=== PATIENT | male | born 1960 ===

== ENCOUNTER 2017-10-21 16:22 | Observation (INO) ==
[2017-10-21] MEDS ORDERED: ASPIRIN 325 MG TABLET PO STA (17:35)
[2017-10-21] MEDS ORDERED: NITROGLYCERIN 2% OINT 1 INCH/GM PACK TOP STA (17:35)
[2017-10-21] MEDS ORDERED: ONDANSETRON 4 MG/2 ML VIAL IV STA (17:35)
[2017-10-21] MEDS ORDERED: MORPHINE 2 MG/1 ML SYRINGE IV STA (17:35)
[2017-10-21] MEDS ORDERED: FUROSEMIDE 40 MG/4 ML VIAL IV STA (17:35)
[2017-10-21 17:44] LABS: Basophils % 0.5 % (0.0-0.8); Eosinophils # 0.2 10*3/uL (0.0-0.87); Eosinophils % 2.6 % (0.00-10.9); Hematocrit 32.6 VOL% (42.0-52.0); Hemoglobin 11.1 GM/DL (14.0-18.0); Immature Granulocytes Absolute 0.07 #; Lymphocytes # 2.3 10*3/uL (1.4-4.0); Lymphocytes % 31.8 % (21.2-54.2); Mean Corpuscular Hemoglobin 28 PG (27-34); Mean Corpuscular Volume 80.7 FL (87-102); Mean Platelet Volume 12.5 FL (9.6-12.0); Monocytes # 0.5 10*3/uL (0.11-0.8); Monocytes % 6.3 % (1.7-12.7); Neutrophils # 4.3 10*3/uL (1.4-7.4); Neutrophils % 57.8 % (38.7-73.9); Platelet Count 311 T/CUMM (130-400); Red Blood Count 4.04 MC/CUMM (3.8-5.5); Red Cell Distribution Width 13.8 % (9.3-17.3); White Blood Count 7.4 T/CUMM (4-12)
[2017-10-21] MEDS ORDERED: MORPHINE 2 MG/1 ML SYRINGE ONE (17:49)
[2017-10-21] MEDS ORDERED: FUROSEMIDE 40 MG/4 ML VIAL ONE (17:49)
[2017-10-21] MEDS ORDERED: NITROGLYCERIN 2% OINT 1 INCH/GM PACK TOP ONE (17:49)
[2017-10-21] MEDS ORDERED: ONDANSETRON 4 MG/2 ML VIAL ONE (17:49)
[2017-10-21] MEDS ORDERED: ASPIRIN 325 MG TABLET ONE (17:49)
[2017-10-21 17:59] LABS: Albumin 1.5 G/DL (3.4-5.0); Bilirubin,Total 0.5 MG/DL (0.2-1.0); Calcium 7.6 MG/DL (8.5-10.1); Osmolality,Calculated 295.8 MOS/KG (273-304); Potassium 3.5 MMOL/L (3.5-5.1); Total Protein 5.1 G/DL (6.4-8.3)
[2017-10-21 18:09] LABS: Apearance,Urine CLEAR (Clear); Bilirubin,Urine Negative (Negative); Blood, Urine Negative (Negative); Glucose,Urine (UA) >=500 mg/dL (Negative); Ketones,Urine Negative (Negative); Mucus,Urine Occasional /LPF (Occasional); Nitrite,Urine Negative (Negative); Protein,Urine >=500 MG/DL; RBC,Urine 1 /HPF (0-4); Urine Color Yellow (Yellow); Urine Specific Gravity 1.021 (1.001-1.035); Urine Urobilinogen < 2.0 EU/DL (0.2-1.0); WBC,Urine 1 /HPF (0-6)
[2017-10-21 18:11] LABS: Barbiturates Screen,Urine Negative (Negative); Benzodiazepines Screen,Urine Negative (Negative); Cannabinoid Screen,Urine Negative (Negative); Opiate Screen,Urine Negative (Negative); Phencyclidine Screen,Urine Negative (Negative)
[2017-10-21 18:16] LABS: INR 0.9; PT Patient Result 9.4 SECS
[2017-10-21] MEDS ORDERED: INSULIN REGULAR 100 UNIT/ML SUBCUT STA (18:40)
[2017-10-21] MEDS ORDERED: POLYVINYL ALCOHOL 1.4% OPH SOLN 15 ML BOTTLE BOTH EYES PRN (18:50)
[2017-10-21] MEDS ORDERED: INSULIN REGULAR 100 UNIT/ML ONE (18:52)
[2017-10-21] MEDS ORDERED: ACETAMINOPHEN 325 MG TABLET PO PRN (19:11)
[2017-10-21] MEDS ORDERED: DEXTROSE 50% 25 GM/50 ML VIAL IV PRN (19:11)
[2017-10-21] MEDS ORDERED: GLUCAGON 1 MG VIAL IM PRN (19:11)
[2017-10-21] MEDS ORDERED: ONDANSETRON 4 MG/2 ML VIAL IV PRN (19:11)
[2017-10-21] MEDS ORDERED: DORZOLAMIDE/TIMOLOL OPH SOLN 10 ML BOTTLE BOTH EYES SCH (21:00)
[2017-10-21] MEDS: LISINOPRIL 20 MG TABLET PO SCH (22:44)
[2017-10-21] MEDS: ATORVASTATIN 80 MG TABLET PO SCH (22:44)
[2017-10-21] MEDS: METOPROLOL TARTRATE 25 MG TABLET PO SCH (22:45)
[2017-10-21] MEDS: GABAPENTIN 100 MG CAPSULE PO SCH (22:45)
[2017-10-21] MEDS: ENOXAPARIN 40 MG/0.4 ML SYRINGE SUBCUT SCH (22:46)
[2017-10-21] MEDS: INSULIN GLARGINE 100 UNIT/ML SUBCUT SCH (22:47)
[2017-10-21] MEDS: INSULIN REGULAR 100 UNIT/ML SUBCUT SCH (22:48)
[2017-10-21] MEDS: BRIMONIDINE 0.2% OPH SOLN 5 ML BOTTLE LEFT EYE SCH (22:55)
[2017-10-22] MEDS: NITROGLYCERIN 2% OINT 1 INCH/GM PACK TOP SCH ×4 (01:16→17:50)
[2017-10-22 05:43] LABS: Basophils # 0.1 10*3/uL (0.0-0.2); Basophils % 0.8 % (0.0-0.8); Eosinophils # 0.3 10*3/uL (0.0-0.87); Eosinophils % 3.9 % (0.00-10.9); Hematocrit 30.3 VOL% (42.0-52.0); Hemoglobin 9.8 GM/DL (14.0-18.0); Immature Granulocytes % 1.3 %; Immature Granulocytes Absolute 0.08 #; Lymphocytes # 2.9 10*3/uL (1.4-4.0); Lymphocytes % 45.5 % (21.2-54.2); Mean Corpuscular HGB Conc 32.3 GM/DL (32-36); Mean Corpuscular Hemoglobin 27 PG (27-34); Mean Corpuscular Volume 83.7 FL (87-102); Mean Platelet Volume 12.1 FL (9.6-12.0); Monocytes # 0.4 10*3/uL (0.11-0.8); Monocytes % 6.9 % (1.7-12.7); Neutrophils # 2.7 10*3/uL (1.4-7.4); Neutrophils % 41.6 % (38.7-73.9); Platelet Count 275 T/CUMM (130-400); Red Blood Count 3.62 MC/CUMM (3.8-5.5); Red Cell Distribution Width 13.8 % (9.3-17.3); White Blood Count 6.4 T/CUMM (4-12)
[2017-10-22 06:08] LABS: Calcium 7.3 MG/DL (8.5-10.1); Osmolality,Calculated 293.4 MOS/KG (273-304); Potassium 3.1 MMOL/L (3.5-5.1); Risk Ratio 5.11; Thyroid Stimulating Hormone 1.52 uIU/ml (0.358-3.74); VLDL CHOLESTEROL 24.8 MG/DL
[2017-10-22] MEDS: GABAPENTIN 100 MG CAPSULE PO SCH ×3 (08:25→22:52)
[2017-10-22] MEDS: POTASSIUM CHLORIDE 20 MEQ TABLET PO PRN ×4 (08:25→15:42)
[2017-10-22] MEDS: CLOPIDOGREL 75 MG TABLET PO SCH (08:26)
[2017-10-22] MEDS: METOPROLOL TARTRATE 25 MG TABLET PO SCH ×2 (08:26→22:53)
[2017-10-22] MEDS: ASPIRIN EC 81 MG TABLET PO SCH (08:26)
[2017-10-22] MEDS: PANTOPRAZOLE 40 MG TABLET PO SCH (08:26)
[2017-10-22] MEDS: LISINOPRIL 20 MG TABLET PO SCH ×2 (08:26→22:54)
[2017-10-22] MEDS: INSULIN REGULAR 100 UNIT/ML SUBCUT SCH ×4 (08:27→22:50)
[2017-10-22] MEDS: INSULIN LISPRO 100 UNIT/ML SUBCUT SCH (08:28)
[2017-10-22] MEDS: BRIMONIDINE 0.2% OPH SOLN 5 ML BOTTLE LEFT EYE SCH ×3 (12:19→22:54)
[2017-10-22] MEDS: SODIUM CHLORIDE 0.45% 1,000 ML IV SCH (12:20)
[2017-10-22] MEDS: INSULIN GLARGINE 100 UNIT/ML SUBCUT SCH (22:51)
[2017-10-22] MEDS: ENOXAPARIN 40 MG/0.4 ML SYRINGE SUBCUT SCH (22:52)
[2017-10-22] MEDS: ATORVASTATIN 80 MG TABLET PO SCH (22:52)
[2017-10-23] MEDS: NITROGLYCERIN 2% OINT 1 INCH/GM PACK TOP SCH ×3 (00:43→12:02)
[2017-10-23] MEDS: SODIUM CHLORIDE 0.45% 1,000 ML IV SCH ×2 (00:44→02:20)
[2017-10-23 06:15] LABS: Basophils # 0.1 10*3/uL (0.0-0.2); Basophils % 0.8 % (0.0-0.8); Eosinophils # 0.3 10*3/uL (0.0-0.87); Eosinophils % 3.4 % (0.00-10.9); Hematocrit 33.4 VOL% (42.0-52.0); Hemoglobin 10.6 GM/DL (14.0-18.0); Immature Granulocytes % 1.7 %; Immature Granulocytes Absolute 0.13 #; Lymphocytes # 3.1 10*3/uL (1.4-4.0); Lymphocytes % 39.7 % (21.2-54.2); Mean Corpuscular HGB Conc 31.7 GM/DL (32-36); Mean Corpuscular Hemoglobin 27 PG (27-34); Mean Platelet Volume 12.3 FL (9.6-12.0); Monocytes # 0.6 10*3/uL (0.11-0.8); Monocytes % 7.1 % (1.7-12.7); Neutrophils # 3.7 10*3/uL (1.4-7.4); Neutrophils % 47.3 % (38.7-73.9); Platelet Count 297 T/CUMM (130-400); Red Blood Count 3.93 MC/CUMM (3.8-5.5); Red Cell Distribution Width 13.9 % (9.3-17.3); White Blood Count 7.8 T/CUMM (4-12)
[2017-10-23 06:49] LABS: Calcium 7.6 MG/DL (8.5-10.1); Osmolality,Calculated 293.3 MOS/KG (273-304); Potassium 4.5 MMOL/L (3.5-5.1)
[2017-10-23 07:49] VITALS: BP 161/82
[2017-10-23] MEDS: INSULIN REGULAR 100 UNIT/ML SUBCUT SCH ×2 (09:30→12:02)
[2017-10-23] MEDS: METOPROLOL TARTRATE 25 MG TABLET PO SCH (09:30)
[2017-10-23] MEDS: PANTOPRAZOLE 40 MG TABLET PO SCH (09:30)
[2017-10-23] MEDS: BRIMONIDINE 0.2% OPH SOLN 5 ML BOTTLE LEFT EYE SCH (09:30)
[2017-10-23] MEDS: CLOPIDOGREL 75 MG TABLET PO SCH (09:30)
[2017-10-23] MEDS: ASPIRIN EC 81 MG TABLET PO SCH (09:30)
[2017-10-23] MEDS: LISINOPRIL 20 MG TABLET PO SCH (09:31)
[2017-10-23] MEDS: GABAPENTIN 100 MG CAPSULE PO SCH (09:31)
[2017-10-23] MEDS: INSULIN LISPRO 100 UNIT/ML SUBCUT SCH (09:35)
[2017-10-23] MEDS ORDERED: amLODIPine 10 MG TABLET PO SCH (11:00)
[2017-10-23] MEDS ORDERED: INSULIN GLARGINE 100 UNIT/ML SUBCUT SCH (21:00)
[2017-10-24] MEDS ORDERED: LISINOPRIL 20 MG TABLET PO SCH (09:00)
== END 2017-10-23 12:33 | disposition home health service (06) ==
LOC: EDUNIT# → EDBD → N.ED 16:22 → N.EDINP 16:22 → N.2E 19:12 → N.SDSINP 19:20 → N.2E 20:07
PROVIDERS: ADMIT Hospitalist; ATTEND Hospitalist

== ENCOUNTER 2017-11-11 11:50 | Inpatient (IN) ==
[2017-11-11 13:17] LABS: Basophils # 0.1 10*3/uL (0.0-0.2); Basophils % 0.4 % (0.0-0.8); Eosinophils # 0.1 10*3/uL (0.0-0.87); Eosinophils % 0.3 % (0.00-10.9); Hematocrit 35.4 VOL% (42.0-52.0); Hemoglobin 11.8 GM/DL (14.0-18.0); Immature Granulocytes % 1.3 %; Immature Granulocytes Absolute 0.21 #; Lymphocytes # 1.6 10*3/uL (1.4-4.0); Lymphocytes % 9.5 % (21.2-54.2); Mean Corpuscular HGB Conc 33.3 GM/DL (32-36); Mean Corpuscular Hemoglobin 27 PG (27-34); Mean Corpuscular Volume 81.2 FL (87-102); Mean Platelet Volume 11.8 FL (9.6-12.0); Monocytes % 5.8 % (1.7-12.7); Neutrophils # 13.8 10*3/uL (1.4-7.4); Neutrophils % 82.7 % (38.7-73.9); Platelet Count 300 T/CUMM (130-400); Red Blood Count 4.36 MC/CUMM (3.8-5.5); Red Cell Distribution Width 13.3 % (9.3-17.3); White Blood Count 16.6 T/CUMM (4-12)
[2017-11-11 13:41] LABS: Albumin 1.5 G/DL (3.4-5.0); Bilirubin,Total 0.5 MG/DL (0.2-1.0); Calcium 7.9 MG/DL (8.5-10.1); Osmolality,Calculated 293.4 MOS/KG (273-304); Potassium 3.5 MMOL/L (3.5-5.1); Total Protein 6.4 G/DL (6.4-8.3)
[2017-11-11] MEDS ORDERED: SODIUM CHLORIDE 0.9% 1,000 ML IV STA (14:30)
[2017-11-11] MEDS ORDERED: INSULIN REGULAR 100 UNIT/ML IV STA (14:30)
[2017-11-11] MEDS ORDERED: INSULIN REGULAR 100 UNIT/ML ONE (14:37)
[2017-11-11 15:03] LABS: Apearance,Urine CLEAR (Clear); Bilirubin,Urine Negative (Negative); Blood, Urine Small mg/dL (Negative); Glucose,Urine (UA) >=500 mg/dL (Negative); Ketones,Urine Negative (Negative); Mucus,Urine Occasional /LPF (Occasional); Nitrite,Urine Negative (Negative); Protein,Urine >=500 MG/DL; RBC,Urine 2 /HPF (0-4); Squamous Epithelial Cell,Urine Occasional /HPF (0-10); Urine Color Yellow (Yellow); Urine Specific Gravity 1.025 (1.001-1.035); Urine Urobilinogen < 2.0 EU/DL (0.2-1.0); WBC,Urine 2 /HPF (0-6)
[2017-11-11] MEDS ORDERED: ONDANSETRON 4 MG/2 ML VIAL IV PRN (15:09)
[2017-11-11] MEDS ORDERED: ACETAMINOPHEN 325 MG TABLET PO PRN (15:09)
[2017-11-11] MEDS ORDERED: GLUCAGON 1 MG VIAL IM PRN (15:16)
[2017-11-11] MEDS ORDERED: DEXTROSE 50% 25 GM/50 ML VIAL IV PRN (15:16)
[2017-11-11] MEDS ORDERED: PIPERACILLIN/TAZOBACTAM 3,375 MG in SODIUM CHLORIDE 0.9% 100 ML IV STA (15:17)
[2017-11-11] MEDS: SODIUM CHLORIDE 0.9% 1,000 ML IV SCH (15:51)
[2017-11-11] MEDS ORDERED: LABETALOL 20 MG/4 ML SYRINGE IV ONE (16:28)
[2017-11-11] MEDS: amLODIPine 10 MG TABLET PO SCH (17:22)
[2017-11-11] MEDS: PIPERACILLIN/TAZOBACTAM 3,375 MG in SODIUM CHLORIDE 0.9% 100 ML IV SCH (17:55)
[2017-11-11] MEDS: INSULIN LISPRO 100 UNIT/ML SUBCUT SCH ×2 (17:57→20:51)
[2017-11-11] MEDS: ENOXAPARIN 40 MG/0.4 ML SYRINGE SUBCUT SCH (17:57)
[2017-11-11] MEDS: INSULIN GLARGINE 100 UNIT/ML SUBCUT SCH (20:50)
[2017-11-11] MEDS: VANCOMYCIN INJ 1,250 MG in SODIUM CHLORIDE 0.9% 250 ML IV SCH ×2 (20:51→22:16)
[2017-11-12] MEDS: PIPERACILLIN/TAZOBACTAM 3,375 MG in SODIUM CHLORIDE 0.9% 100 ML IV SCH ×3 (01:37→21:56)
[2017-11-12 05:46] LABS: Basophils % 0.3 % (0.0-0.8); Eosinophils # 0.2 10*3/uL (0.0-0.87); Eosinophils % 1.4 % (0.00-10.9); Hematocrit 30.7 VOL% (42.0-52.0); Hemoglobin 9.9 GM/DL (14.0-18.0); Immature Granulocytes Absolute 0.13 #; Lymphocytes # 2.5 10*3/uL (1.4-4.0); Lymphocytes % 19.3 % (21.2-54.2); Mean Corpuscular HGB Conc 32.2 GM/DL (32-36); Mean Corpuscular Hemoglobin 27 PG (27-34); Mean Corpuscular Volume 82.3 FL (87-102); Mean Platelet Volume 11.6 FL (9.6-12.0); Monocytes % 7.4 % (1.7-12.7); Neutrophils # 9.2 10*3/uL (1.4-7.4); Neutrophils % 70.6 % (38.7-73.9); Platelet Count 278 T/CUMM (130-400); Red Blood Count 3.73 MC/CUMM (3.8-5.5); Red Cell Distribution Width 13.5 % (9.3-17.3)
[2017-11-12] MEDS: SODIUM CHLORIDE 0.9% 1,000 ML IV SCH (06:13)
[2017-11-12 06:14] LABS: Calcium 7.2 MG/DL (8.5-10.1); Osmolality,Calculated 293.4 MOS/KG (273-304); Potassium 3.1 MMOL/L (3.5-5.1)
[2017-11-12] MEDS: INSULIN LISPRO 100 UNIT/ML SUBCUT SCH ×4 (08:04→21:44)
[2017-11-12] MEDS: PANTOPRAZOLE 40 MG TABLET PO SCH (08:07)
[2017-11-12] MEDS: amLODIPine 10 MG TABLET PO SCH (08:07)
[2017-11-12] MEDS ORDERED: DORZOLAMIDE/TIMOLOL OPH SOLN 10 ML BOTTLE BOTH EYES SCH (11:30)
[2017-11-12] MEDS ORDERED: BUPIVACAINE 0.25% 50 ML VIAL ONE (12:03)
[2017-11-12] MEDS: ASPIRIN EC 81 MG TABLET PO SCH (12:05)
[2017-11-12] MEDS ORDERED: fentaNYL 100 MCG/2 ML VIAL ONE (13:15)
[2017-11-12] MEDS ORDERED: PROPOFOL 200 MG/20 ML VIAL IV ONE (13:15)
[2017-11-12] MEDS ORDERED: MIDAZOLAM 2 MG/2 ML VIAL ONE (13:15)
[2017-11-12] MEDS ORDERED: LABETALOL 100 MG/20 ML VIAL IV ONE (13:15)
[2017-11-12] MEDS: POTASSIUM CHLORIDE 20 MEQ TABLET PO PRN ×2 (14:54→16:25)
[2017-11-12] MEDS: GABAPENTIN 100 MG CAPSULE PO SCH ×2 (16:25→21:44)
[2017-11-12] MEDS: ENOXAPARIN 40 MG/0.4 ML SYRINGE SUBCUT SCH (18:00)
[2017-11-12] MEDS: BRIMONIDINE 0.2% OPH SOLN 5 ML BOTTLE LEFT EYE SCH ×2 (18:02→21:50)
[2017-11-12] MEDS: METOPROLOL TARTRATE 25 MG TABLET PO SCH ×2 (19:44→21:42)
[2017-11-12] MEDS: LISINOPRIL 20 MG TABLET PO SCH (19:45)
[2017-11-12] MEDS: ATORVASTATIN 80 MG TABLET PO SCH (21:42)
[2017-11-12] MEDS: INSULIN GLARGINE 100 UNIT/ML SUBCUT SCH (21:48)
[2017-11-12] MEDS: VANCOMYCIN INJ 1,250 MG in SODIUM CHLORIDE 0.9% 250 ML IV SCH (23:00)
[2017-11-13] MEDS: PIPERACILLIN/TAZOBACTAM 3,375 MG in SODIUM CHLORIDE 0.9% 100 ML IV SCH ×3 (01:31→16:57)
[2017-11-13] MEDS: SODIUM CHLORIDE 0.9% 1,000 ML IV SCH ×5 (06:10→22:39)
[2017-11-13] MEDS: INSULIN LISPRO 100 UNIT/ML SUBCUT SCH ×4 (08:41→21:01)
[2017-11-13 08:42] LABS: Basophils # 0.1 10*3/uL (0.0-0.2); Basophils % 0.4 % (0.0-0.8); Eosinophils # 0.3 10*3/uL (0.0-0.87); Eosinophils % 2.5 % (0.00-10.9); Hematocrit 32.4 VOL% (42.0-52.0); Hemoglobin 10.5 GM/DL (14.0-18.0); Immature Granulocytes % 1.4 %; Immature Granulocytes Absolute 0.17 #; Lymphocytes # 2.9 10*3/uL (1.4-4.0); Lymphocytes % 24.3 % (21.2-54.2); Mean Corpuscular HGB Conc 32.4 GM/DL (32-36); Mean Corpuscular Hemoglobin 27 PG (27-34); Mean Corpuscular Volume 84.4 FL (87-102); Mean Platelet Volume 11.8 FL (9.6-12.0); Monocytes # 0.9 10*3/uL (0.11-0.8); Monocytes % 7.6 % (1.7-12.7); Neutrophils # 7.5 10*3/uL (1.4-7.4); Neutrophils % 63.8 % (38.7-73.9); Platelet Count 330 T/CUMM (130-400); Red Blood Count 3.84 MC/CUMM (3.8-5.5); Red Cell Distribution Width 13.9 % (9.3-17.3); White Blood Count 11.8 T/CUMM (4-12)
[2017-11-13] MEDS: amLODIPine 10 MG TABLET PO SCH (08:53)
[2017-11-13] MEDS: GABAPENTIN 100 MG CAPSULE PO SCH ×3 (08:53→21:03)
[2017-11-13] MEDS: CLOPIDOGREL 75 MG TABLET PO SCH (08:53)
[2017-11-13] MEDS: METOPROLOL TARTRATE 25 MG TABLET PO SCH ×2 (08:53→21:03)
[2017-11-13] MEDS: ASPIRIN EC 81 MG TABLET PO SCH (08:53)
[2017-11-13] MEDS: PANTOPRAZOLE 40 MG TABLET PO SCH (08:53)
[2017-11-13] MEDS: LISINOPRIL 20 MG TABLET PO SCH (08:54)
[2017-11-13 08:55] LABS: Calcium 7.2 MG/DL (8.5-10.1); Osmolality,Calculated 285.3 MOS/KG (273-304); Potassium 4.3 MMOL/L (3.5-5.1)
[2017-11-13] MEDS: BRIMONIDINE 0.2% OPH SOLN 5 ML BOTTLE LEFT EYE SCH ×3 (13:03→22:37)
[2017-11-13] MEDS: POLYVINYL ALCOHOL 1.4% OPH SOLN 15 ML BOTTLE BOTH EYES PRN (15:45)
[2017-11-13] MEDS: ENOXAPARIN 40 MG/0.4 ML SYRINGE SUBCUT SCH (16:56)
[2017-11-13] MEDS: INSULIN GLARGINE 100 UNIT/ML SUBCUT SCH (21:02)
[2017-11-13] MEDS: ATORVASTATIN 80 MG TABLET PO SCH (21:03)
[2017-11-13] MEDS: VANCOMYCIN INJ 1,250 MG in SODIUM CHLORIDE 0.9% 250 ML IV SCH (22:42)
[2017-11-14] MEDS: PIPERACILLIN/TAZOBACTAM 3,375 MG in SODIUM CHLORIDE 0.9% 100 ML IV SCH ×3 (02:09→16:52)
[2017-11-14 06:38] LABS: Basophils # 0.1 10*3/uL (0.0-0.2); Basophils % 0.6 % (0.0-0.8); Eosinophils # 0.3 10*3/uL (0.0-0.87); Eosinophils % 3.5 % (0.00-10.9); Hematocrit 29.5 VOL% (42.0-52.0); Hemoglobin 9.5 GM/DL (14.0-18.0); Immature Granulocytes % 1.8 %; Immature Granulocytes Absolute 0.15 #; Lymphocytes # 2.5 10*3/uL (1.4-4.0); Lymphocytes % 30.4 % (21.2-54.2); Mean Corpuscular HGB Conc 32.2 GM/DL (32-36); Mean Corpuscular Hemoglobin 27 PG (27-34); Mean Platelet Volume 11.6 FL (9.6-12.0); Monocytes # 0.6 10*3/uL (0.11-0.8); Neutrophils # 4.7 10*3/uL (1.4-7.4); Neutrophils % 56.7 % (38.7-73.9); Platelet Count 320 T/CUMM (130-400); Red Blood Count 3.51 MC/CUMM (3.8-5.5); Red Cell Distribution Width 13.8 % (9.3-17.3); White Blood Count 8.3 T/CUMM (4-12)
[2017-11-14 07:07] LABS: Calcium 7.4 MG/DL (8.5-10.1); Osmolality,Calculated 284.4 MOS/KG (273-304); Potassium 3.9 MMOL/L (3.5-5.1)
[2017-11-14] MEDS: INSULIN LISPRO 100 UNIT/ML SUBCUT SCH ×4 (09:08→20:36)
[2017-11-14] MEDS: BRIMONIDINE 0.2% OPH SOLN 5 ML BOTTLE LEFT EYE SCH ×3 (09:09→20:38)
[2017-11-14] MEDS: CLOPIDOGREL 75 MG TABLET PO SCH (09:09)
[2017-11-14] MEDS: ASPIRIN EC 81 MG TABLET PO SCH (09:09)
[2017-11-14] MEDS: METOPROLOL TARTRATE 25 MG TABLET PO SCH ×2 (09:09→20:34)
[2017-11-14] MEDS: amLODIPine 10 MG TABLET PO SCH (09:09)
[2017-11-14] MEDS: SODIUM CHLORIDE 0.9% 1,000 ML IV SCH ×2 (09:09→15:56)
[2017-11-14] MEDS: LISINOPRIL 20 MG TABLET PO SCH (09:09)
[2017-11-14] MEDS: PANTOPRAZOLE 40 MG TABLET PO SCH (09:09)
[2017-11-14] MEDS: GABAPENTIN 100 MG CAPSULE PO SCH ×3 (09:09→20:34)
[2017-11-14] MEDS: ENOXAPARIN 40 MG/0.4 ML SYRINGE SUBCUT SCH (14:52)
[2017-11-14] MEDS: LABETALOL 20 MG/4 ML SYRINGE IV PRN (16:53)
[2017-11-14] MEDS: INSULIN GLARGINE 100 UNIT/ML SUBCUT SCH (20:35)
[2017-11-15] MEDS: PIPERACILLIN/TAZOBACTAM 3,375 MG in SODIUM CHLORIDE 0.9% 100 ML IV SCH ×2 (01:52→08:19)
[2017-11-15] MEDS: SODIUM CHLORIDE 0.9% 1,000 ML IV SCH ×3 (02:03→11:51)
[2017-11-15 06:31] LABS: Basophils % 0.5 % (0.0-0.8); Eosinophils # 0.3 10*3/uL (0.0-0.87); Eosinophils % 3.9 % (0.00-10.9); Hematocrit 28.9 VOL% (42.0-52.0); Hemoglobin 9.5 GM/DL (14.0-18.0); Immature Granulocytes % 2.1 %; Immature Granulocytes Absolute 0.18 #; Lymphocytes # 2.1 10*3/uL (1.4-4.0); Lymphocytes % 25.2 % (21.2-54.2); Mean Corpuscular HGB Conc 32.9 GM/DL (32-36); Mean Corpuscular Hemoglobin 27 PG (27-34); Mean Corpuscular Volume 82.1 FL (87-102); Mean Platelet Volume 10.9 FL (9.6-12.0); Monocytes # 0.6 10*3/uL (0.11-0.8); Monocytes % 7.3 % (1.7-12.7); Neutrophils # 5.2 10*3/uL (1.4-7.4); Platelet Count 330 T/CUMM (130-400); Red Blood Count 3.52 MC/CUMM (3.8-5.5); Red Cell Distribution Width 13.7 % (9.3-17.3); White Blood Count 8.5 T/CUMM (4-12)
[2017-11-15 06:55] LABS: Calcium 7.2 MG/DL (8.5-10.1); Potassium 3.7 MMOL/L (3.5-5.1)
[2017-11-15] MEDS: INSULIN LISPRO 100 UNIT/ML SUBCUT SCH ×4 (08:17→21:31)
[2017-11-15] MEDS: METOPROLOL TARTRATE 25 MG TABLET PO SCH ×2 (08:19→21:31)
[2017-11-15] MEDS: PANTOPRAZOLE 40 MG TABLET PO SCH (08:19)
[2017-11-15] MEDS: ASPIRIN EC 81 MG TABLET PO SCH (08:19)
[2017-11-15] MEDS: amLODIPine 10 MG TABLET PO SCH (08:19)
[2017-11-15] MEDS: GABAPENTIN 100 MG CAPSULE PO SCH ×3 (08:19→21:30)
[2017-11-15] MEDS: CLOPIDOGREL 75 MG TABLET PO SCH (08:19)
[2017-11-15] MEDS: BRIMONIDINE 0.2% OPH SOLN 5 ML BOTTLE LEFT EYE SCH ×3 (08:25→21:32)
[2017-11-15] MEDS: cefTRIAXone 2,000 MG in SODIUM CHLORIDE 0.9% 100 ML IV SCH (12:56)
[2017-11-15] MEDS ORDERED: diphenhydrAMINE CAP 25 MG CAPSULE PO PRN (13:51)
[2017-11-15] MEDS ORDERED: diphenhydrAMINE CAP 25 MG CAPSULE ONE (14:01)
[2017-11-15] MEDS: ENOXAPARIN 40 MG/0.4 ML SYRINGE SUBCUT SCH (15:47)
[2017-11-15] MEDS: INSULIN GLARGINE 100 UNIT/ML SUBCUT SCH (21:31)
[2017-11-16] MEDS: SODIUM CHLORIDE 0.9% 1,000 ML IV SCH ×2 (03:17→12:33)
[2017-11-16] MEDS: INSULIN LISPRO 100 UNIT/ML SUBCUT SCH ×4 (08:28→21:12)
[2017-11-16] MEDS: GABAPENTIN 100 MG CAPSULE PO SCH ×3 (08:29→21:12)
[2017-11-16] MEDS: METOPROLOL TARTRATE 25 MG TABLET PO SCH ×2 (08:29→21:13)
[2017-11-16] MEDS: PANTOPRAZOLE 40 MG TABLET PO SCH (08:29)
[2017-11-16] MEDS: amLODIPine 10 MG TABLET PO SCH (08:29)
[2017-11-16] MEDS: BRIMONIDINE 0.2% OPH SOLN 5 ML BOTTLE LEFT EYE SCH ×3 (08:29→21:13)
[2017-11-16] MEDS: LABETALOL 20 MG/4 ML SYRINGE IV PRN ×2 (08:29→16:35)
[2017-11-16] MEDS: ASPIRIN EC 81 MG TABLET PO SCH (08:29)
[2017-11-16] MEDS: CLOPIDOGREL 75 MG TABLET PO SCH (08:29)
[2017-11-16] MEDS: cefTRIAXone 2,000 MG in SODIUM CHLORIDE 0.9% 100 ML IV SCH (12:41)
[2017-11-16] MEDS ORDERED: FUROSEMIDE 40 MG/4 ML VIAL IV ONE (13:33)
[2017-11-16] MEDS: ENOXAPARIN 40 MG/0.4 ML SYRINGE SUBCUT SCH (14:32)
[2017-11-16] MEDS: INSULIN GLARGINE 100 UNIT/ML SUBCUT SCH (21:12)
[2017-11-17 06:44] LABS: Calcium 7.6 MG/DL (8.5-10.1); Potassium 4.1 MMOL/L (3.5-5.1)
[2017-11-17] MEDS: INSULIN LISPRO 100 UNIT/ML SUBCUT SCH ×4 (08:20→21:33)
[2017-11-17] MEDS: GABAPENTIN 100 MG CAPSULE PO SCH ×3 (09:41→21:34)
[2017-11-17] MEDS: ASPIRIN EC 81 MG TABLET PO SCH (09:41)
[2017-11-17] MEDS: CLOPIDOGREL 75 MG TABLET PO SCH (09:41)
[2017-11-17] MEDS: METOPROLOL TARTRATE 25 MG TABLET PO SCH ×2 (09:41→21:34)
[2017-11-17] MEDS: BRIMONIDINE 0.2% OPH SOLN 5 ML BOTTLE LEFT EYE SCH ×3 (09:41→21:34)
[2017-11-17] MEDS: amLODIPine 10 MG TABLET PO SCH (09:41)
[2017-11-17] MEDS: PANTOPRAZOLE 40 MG TABLET PO SCH (09:41)
[2017-11-17] MEDS: cefTRIAXone 2,000 MG in SODIUM CHLORIDE 0.9% 100 ML IV SCH (12:11)
[2017-11-17] MEDS: ENOXAPARIN 40 MG/0.4 ML SYRINGE SUBCUT SCH (15:34)
[2017-11-17] MEDS: FUROSEMIDE 40 MG/4 ML VIAL IV SCH (16:42)
[2017-11-17] MEDS: INSULIN GLARGINE 100 UNIT/ML SUBCUT SCH (21:34)
[2017-11-18 05:57] LABS: Basophils # 0.1 10*3/uL (0.0-0.2); Basophils % 0.6 % (0.0-0.8); Eosinophils # 0.4 10*3/uL (0.0-0.87); Hematocrit 28.6 VOL% (42.0-52.0); Hemoglobin 9.2 GM/DL (14.0-18.0); Immature Granulocytes % 4.5 %; Immature Granulocytes Absolute 0.44 #; Lymphocytes # 3.1 10*3/uL (1.4-4.0); Lymphocytes % 31.5 % (21.2-54.2); Mean Corpuscular HGB Conc 32.2 GM/DL (32-36); Mean Corpuscular Hemoglobin 27 PG (27-34); Mean Corpuscular Volume 83.4 FL (87-102); Mean Platelet Volume 10.4 FL (9.6-12.0); Monocytes # 0.7 10*3/uL (0.11-0.8); Monocytes % 7.5 % (1.7-12.7); Neutrophils # 5.1 10*3/uL (1.4-7.4); Neutrophils % 51.9 % (38.7-73.9); Platelet Count 394 T/CUMM (130-400); Red Blood Count 3.43 MC/CUMM (3.8-5.5); White Blood Count 9.9 T/CUMM (4-12)
[2017-11-18 06:20] LABS: Calcium 7.5 MG/DL (8.5-10.1); Potassium 3.7 MMOL/L (3.5-5.1)
[2017-11-18] MEDS: INSULIN LISPRO 100 UNIT/ML SUBCUT SCH ×4 (08:56→21:20)
[2017-11-18] MEDS: FUROSEMIDE 40 MG/4 ML VIAL IV SCH ×2 (09:19→15:46)
[2017-11-18] MEDS: BRIMONIDINE 0.2% OPH SOLN 5 ML BOTTLE LEFT EYE SCH ×3 (09:20→21:23)
[2017-11-18] MEDS: amLODIPine 10 MG TABLET PO SCH (09:20)
[2017-11-18] MEDS: METOPROLOL TARTRATE 25 MG TABLET PO SCH ×2 (09:20→21:18)
[2017-11-18] MEDS: GABAPENTIN 100 MG CAPSULE PO SCH ×3 (09:20→21:18)
[2017-11-18] MEDS: ASPIRIN EC 81 MG TABLET PO SCH (09:20)
[2017-11-18] MEDS: CLOPIDOGREL 75 MG TABLET PO SCH (09:20)
[2017-11-18] MEDS: cefTRIAXone 2,000 MG in SODIUM CHLORIDE 0.9% 100 ML IV SCH (12:16)
[2017-11-18] MEDS: ENOXAPARIN 40 MG/0.4 ML SYRINGE SUBCUT SCH (14:33)
[2017-11-18] MEDS: INSULIN GLARGINE 100 UNIT/ML SUBCUT SCH (21:19)
[2017-11-19] MEDS: LABETALOL 20 MG/4 ML SYRINGE IV PRN (05:14)
[2017-11-19] MEDS: FUROSEMIDE 40 MG/4 ML VIAL IV SCH (08:35)
[2017-11-19] MEDS: POLYVINYL ALCOHOL 1.4% OPH SOLN 15 ML BOTTLE BOTH EYES PRN (08:36)
[2017-11-19] MEDS: METOPROLOL TARTRATE 25 MG TABLET PO SCH (08:36)
[2017-11-19] MEDS: INSULIN LISPRO 100 UNIT/ML SUBCUT SCH ×2 (08:36→12:27)
[2017-11-19] MEDS: CLOPIDOGREL 75 MG TABLET PO SCH (08:36)
[2017-11-19] MEDS: ASPIRIN EC 81 MG TABLET PO SCH (08:36)
[2017-11-19] MEDS: amLODIPine 10 MG TABLET PO SCH (08:36)
[2017-11-19] MEDS: BRIMONIDINE 0.2% OPH SOLN 5 ML BOTTLE LEFT EYE SCH (08:36)
[2017-11-19] MEDS: GABAPENTIN 100 MG CAPSULE PO SCH (08:38)
[2017-11-19 12:06] VITALS: BP 154/87
[2017-11-19] MEDS: cefTRIAXone 2,000 MG in SODIUM CHLORIDE 0.9% 100 ML IV SCH (12:34)
== END 2017-11-19 13:24 | disposition swing bed (61) | DRG 623 ==
LOC: EDUNIT# → EDBD → N.ED 11:50 → N.EDINP 14:36 → SUATTDRO 14:36 → N.5E 15:30
PROVIDERS: ADMIT Hospitalist; ATTEND Internal Medicine

== ENCOUNTER 2018-03-21 02:41 | Inpatient (IN) ==
[2018-03-21] MEDS ORDERED: DEXTROSE 50% 25 GM/50 ML VIAL IV PRN ×3 (03:28→13:28)
[2018-03-21] MEDS ORDERED: ONDANSETRON 4 MG/2 ML VIAL IV PRN (03:28)
[2018-03-21] MEDS ORDERED: ACETAMINOPHEN 325 MG TABLET PO PRN (03:28)
[2018-03-21] MEDS ORDERED: GLUCAGON 1 MG VIAL IM PRN ×3 (03:28→13:28)
[2018-03-21] MEDS: SODIUM CHLORIDE 0.9% 1,000 ML IV SCH (05:41)
[2018-03-21] MEDS: PIPERACILLIN/TAZOBACTAM 3,375 MG in SODIUM CHLORIDE 0.9% 100 ML IV SCH ×3 (05:48→22:51)
[2018-03-21] MEDS ORDERED: INSULIN REGULAR 100 UNIT/ML SUBCUT SCH (07:30)
[2018-03-21 08:21] LABS: Basophils # 0.1 10*3/uL (0.0-0.2); Basophils % 0.9 % (0.0-0.8); Eosinophils # 0.1 10*3/uL (0.0-0.87); Eosinophils % 1.4 % (0.00-10.9); Hematocrit 28.6 VOL% (42.0-52.0); Hemoglobin 9.7 GM/DL (14.0-18.0); Immature Granulocytes % 1.2 %; Lymphocytes # 2.4 10*3/uL (1.4-4.0); Mean Corpuscular HGB Conc 33.9 GM/DL (32-36); Mean Corpuscular Hemoglobin 28 PG (27-34); Mean Corpuscular Volume 81.3 FL (87-102); Mean Platelet Volume 10.6 FL (9.6-12.0); Monocytes # 0.7 10*3/uL (0.11-0.8); Monocytes % 8.4 % (1.7-12.7); Neutrophils # 5.2 10*3/uL (1.4-7.4); Neutrophils % 60.1 % (38.7-73.9); Platelet Count 552 T/CUMM (130-400); Red Blood Count 3.52 MC/CUMM (3.8-5.5); Red Cell Distribution Width 14.6 % (9.3-17.3); White Blood Count 8.7 T/CUMM (4-12)
[2018-03-21 08:46] LABS: Calcium 7.3 MG/DL (8.5-10.1); Osmolality,Calculated 291.4 MOS/KG (273-304)
[2018-03-21] MEDS ORDERED: VANCOMYCIN INJ 1,250 MG in SODIUM CHLORIDE 0.9% 250 ML IV PRN (09:57)
[2018-03-21] MEDS ORDERED: VANCOMYCIN INJ 1,250 MG in SODIUM CHLORIDE 0.9% 250 ML IV SCH (10:00)
[2018-03-21] MEDS ORDERED: VANCOMYCIN INJ 1,250 MG in SODIUM CHLORIDE 0.9% 250 ML IV ONE (10:00)
[2018-03-21] MEDS: INSULIN GLARGINE 100 UNIT/ML SUBCUT SCH (11:00)
[2018-03-21] MEDS: INSULIN REGULAR 100 UNIT/ML SUBCUT SCH ×4 (11:05→20:36)
[2018-03-21] MEDS: ENOXAPARIN 30 MG/0.3 ML SYRINGE SUBCUT SCH (11:05)
[2018-03-21] MEDS: PANTOPRAZOLE 40 MG TABLET PO SCH (11:06)
[2018-03-21] MEDS ORDERED: LIDOCAINE 1% 20 ML VIAL ONE (11:20)
[2018-03-21] MEDS: hydrALAZINE 20 MG/1 ML VIAL IV PRN (11:31)
[2018-03-21] MEDS ORDERED: PROPOFOL 200 MG/20 ML VIAL IV ONE (12:37)
[2018-03-21] MEDS ORDERED: MIDAZOLAM 2 MG/2 ML VIAL ONE (12:37)
[2018-03-21] MEDS ORDERED: fentaNYL 100 MCG/2 ML VIAL ONE (12:38)
[2018-03-21] MEDS: ERGOCALCIFEROL 50,000 UNIT CAPSULE PO SCH (13:34)
[2018-03-21] MEDS: INSULIN LISPRO 100 UNIT/ML SUBCUT SCH ×2 (13:35→17:55)
[2018-03-21] MEDS: POLYVINYL ALCOHOL 1.4% OPH SOLN 15 ML BOTTLE BOTH EYES PRN (15:08)
[2018-03-21] MEDS: BRIMONIDINE 0.2% OPH SOLN 5 ML BOTTLE LEFT EYE SCH ×2 (15:08→20:36)
[2018-03-21] MEDS: GABAPENTIN 600 MG TABLET PO SCH ×2 (15:09→20:35)
[2018-03-21] MEDS: ATORVASTATIN 40 MG TABLET PO SCH (20:35)
[2018-03-21] MEDS: METOPROLOL TARTRATE 25 MG TABLET PO SCH (20:36)
[2018-03-21] MEDS: FUROSEMIDE 20 MG TABLET PO SCH (20:36)
[2018-03-22 03:24] LABS: Basophils % 0.5 % (0.0-0.8); Eosinophils # 0.1 10*3/uL (0.0-0.87); Eosinophils % 1.2 % (0.00-10.9); Hematocrit 24.3 VOL% (42.0-52.0); Hemoglobin 8.2 GM/DL (14.0-18.0); Immature Granulocytes % 1.8 %; Immature Granulocytes Absolute 0.13 #; Lymphocytes # 1.6 10*3/uL (1.4-4.0); Lymphocytes % 21.9 % (21.2-54.2); Mean Corpuscular HGB Conc 33.7 GM/DL (32-36); Mean Corpuscular Hemoglobin 27 PG (27-34); Mean Platelet Volume 10.4 FL (9.6-12.0); Monocytes # 0.6 10*3/uL (0.11-0.8); Neutrophils # 4.9 10*3/uL (1.4-7.4); Neutrophils % 66.6 % (38.7-73.9); Platelet Count 450 T/CUMM (130-400); White Blood Count 7.4 T/CUMM (4-12)
[2018-03-22 03:52] LABS: Osmolality,Calculated 286.1 MOS/KG (273-304); Potassium 2.8 MMOL/L (3.5-5.1)
[2018-03-22 03:58] LABS: Risk Ratio 4.06
[2018-03-22] MEDS: hydrALAZINE 20 MG/1 ML VIAL IV PRN (05:14)
[2018-03-22] MEDS: PIPERACILLIN/TAZOBACTAM 3,375 MG in SODIUM CHLORIDE 0.9% 100 ML IV SCH ×3 (06:16→22:05)
[2018-03-22] MEDS ORDERED: POTASSIUM CHLORIDE 20 MEQ PACK PO ONE (08:36)
[2018-03-22] MEDS: INSULIN GLARGINE 100 UNIT/ML SUBCUT SCH (10:14)
[2018-03-22] MEDS: INSULIN LISPRO 100 UNIT/ML SUBCUT SCH ×3 (10:15→17:28)
[2018-03-22] MEDS: POTASSIUM CHLORIDE RIDER 10 MEQ in PREMIX 1 EACH IV PRN ×5 (10:16→21:24)
[2018-03-22] MEDS: POLYVINYL ALCOHOL 1.4% OPH SOLN 15 ML BOTTLE BOTH EYES PRN ×2 (10:17→14:53)
[2018-03-22] MEDS: BRIMONIDINE 0.2% OPH SOLN 5 ML BOTTLE LEFT EYE SCH ×3 (10:17→20:18)
[2018-03-22] MEDS: CLOPIDOGREL 75 MG TABLET PO SCH (10:18)
[2018-03-22] MEDS: GABAPENTIN 600 MG TABLET PO SCH ×3 (10:18→20:18)
[2018-03-22] MEDS: METOPROLOL TARTRATE 25 MG TABLET PO SCH ×2 (10:18→20:18)
[2018-03-22] MEDS: PANTOPRAZOLE 40 MG TABLET PO SCH (10:19)
[2018-03-22] MEDS: ASPIRIN EC 81 MG TABLET PO SCH (10:19)
[2018-03-22] MEDS: FUROSEMIDE 20 MG TABLET PO SCH ×2 (10:19→20:17)
[2018-03-22] MEDS: amLODIPine 10 MG TABLET PO SCH (10:19)
[2018-03-22] MEDS: ENOXAPARIN 30 MG/0.3 ML SYRINGE SUBCUT SCH (10:19)
[2018-03-22] MEDS: INSULIN REGULAR 100 UNIT/ML SUBCUT SCH ×4 (10:20→21:06)
[2018-03-22] MEDS ORDERED: VANCOMYCIN INJ 1,250 MG in SODIUM CHLORIDE 0.9% 250 ML IV ONE (16:00)
[2018-03-22] MEDS: SODIUM CHLORIDE 0.9% 1,000 ML IV SCH (17:32)
[2018-03-22] MEDS: ATORVASTATIN 40 MG TABLET PO SCH (20:18)
[2018-03-23] MEDS: PIPERACILLIN/TAZOBACTAM 3,375 MG in SODIUM CHLORIDE 0.9% 100 ML IV SCH ×3 (06:28→22:30)
[2018-03-23] MEDS: hydrALAZINE 20 MG/1 ML VIAL IV PRN (07:47)
[2018-03-23] MEDS: BRIMONIDINE 0.2% OPH SOLN 5 ML BOTTLE LEFT EYE SCH ×3 (08:32→21:38)
[2018-03-23] MEDS: INSULIN GLARGINE 100 UNIT/ML SUBCUT SCH (08:32)
[2018-03-23] MEDS: POLYVINYL ALCOHOL 1.4% OPH SOLN 15 ML BOTTLE BOTH EYES PRN ×2 (08:32→15:25)
[2018-03-23] MEDS: METOPROLOL TARTRATE 25 MG TABLET PO SCH ×2 (08:33→21:38)
[2018-03-23] MEDS: PANTOPRAZOLE 40 MG TABLET PO SCH (08:33)
[2018-03-23] MEDS: amLODIPine 10 MG TABLET PO SCH (08:33)
[2018-03-23] MEDS: ENOXAPARIN 30 MG/0.3 ML SYRINGE SUBCUT SCH (08:33)
[2018-03-23] MEDS: CLOPIDOGREL 75 MG TABLET PO SCH (08:33)
[2018-03-23] MEDS: FUROSEMIDE 20 MG TABLET PO SCH ×2 (08:33→21:38)
[2018-03-23] MEDS: GABAPENTIN 600 MG TABLET PO SCH ×3 (08:33→21:38)
[2018-03-23] MEDS: ASPIRIN EC 81 MG TABLET PO SCH (08:33)
[2018-03-23] MEDS: INSULIN REGULAR 100 UNIT/ML SUBCUT SCH ×4 (08:36→21:38)
[2018-03-23] MEDS: INSULIN LISPRO 100 UNIT/ML SUBCUT SCH ×3 (08:37→16:43)
[2018-03-23] MEDS: ATORVASTATIN 40 MG TABLET PO SCH (21:38)
[2018-03-24] MEDS: PIPERACILLIN/TAZOBACTAM 3,375 MG in SODIUM CHLORIDE 0.9% 100 ML IV SCH (05:45)
[2018-03-24] MEDS: SODIUM CHLORIDE 0.9% 1,000 ML IV SCH ×2 (06:06→23:31)
[2018-03-24 06:29] LABS: Basophils # 0.1 10*3/uL (0.0-0.2); Basophils % 0.8 % (0.0-0.8); Eosinophils # 0.4 10*3/uL (0.0-0.87); Eosinophils % 5.1 % (0.00-10.9); Hematocrit 27.7 VOL% (42.0-52.0); Hemoglobin 9.1 GM/DL (14.0-18.0); Immature Granulocytes % 3.1 %; Immature Granulocytes Absolute 0.27 #; Lymphocytes # 2.8 10*3/uL (1.4-4.0); Lymphocytes % 32.3 % (21.2-54.2); Mean Corpuscular HGB Conc 32.9 GM/DL (32-36); Mean Corpuscular Hemoglobin 27 PG (27-34); Mean Corpuscular Volume 83.4 FL (87-102); Mean Platelet Volume 9.7 FL (9.6-12.0); Monocytes # 0.6 10*3/uL (0.11-0.8); Monocytes % 6.5 % (1.7-12.7); Neutrophils # 4.5 10*3/uL (1.4-7.4); Neutrophils % 52.2 % (38.7-73.9); Platelet Count 521 T/CUMM (130-400); Red Blood Count 3.32 MC/CUMM (3.8-5.5); Red Cell Distribution Width 15.7 % (9.3-17.3); White Blood Count 8.6 T/CUMM (4-12)
[2018-03-24 06:55] LABS: Calcium 6.8 MG/DL (8.5-10.1); Osmolality,Calculated 284.4 MOS/KG (273-304); Potassium 3.8 MMOL/L (3.5-5.1)
[2018-03-24] MEDS: INSULIN REGULAR 100 UNIT/ML SUBCUT SCH ×4 (07:25→21:35)
[2018-03-24 07:45] LABS: Sedimentation Rate-Westergren 124 MM/HR (0-20)
[2018-03-24] MEDS: FUROSEMIDE 20 MG TABLET PO SCH ×2 (09:11→21:35)
[2018-03-24] MEDS: ERGOCALCIFEROL 50,000 UNIT CAPSULE PO SCH (09:11)
[2018-03-24] MEDS: ASPIRIN EC 81 MG TABLET PO SCH (09:11)
[2018-03-24] MEDS: PANTOPRAZOLE 40 MG TABLET PO SCH (09:11)
[2018-03-24] MEDS: CLOPIDOGREL 75 MG TABLET PO SCH (09:12)
[2018-03-24] MEDS: METOPROLOL TARTRATE 25 MG TABLET PO SCH ×2 (09:12→21:35)
[2018-03-24] MEDS: amLODIPine 10 MG TABLET PO SCH (09:12)
[2018-03-24] MEDS: GABAPENTIN 600 MG TABLET PO SCH ×3 (09:12→21:35)
[2018-03-24] MEDS: INSULIN GLARGINE 100 UNIT/ML SUBCUT SCH (09:13)
[2018-03-24] MEDS: INSULIN LISPRO 100 UNIT/ML SUBCUT SCH ×3 (09:13→17:53)
[2018-03-24] MEDS: BRIMONIDINE 0.2% OPH SOLN 5 ML BOTTLE LEFT EYE SCH ×3 (09:13→21:36)
[2018-03-24] MEDS: ENOXAPARIN 30 MG/0.3 ML SYRINGE SUBCUT SCH (09:14)
[2018-03-24] MEDS: cefTRIAXone 1,000 MG in SYRINGE 1 EACH IV SCH (12:39)
[2018-03-24] MEDS: MORPHINE 4 MG/1 ML VIAL IV PRN (13:57)
[2018-03-24] MEDS: SODIUM HYPOCHLORITE 0.25% IRRIG 473 ML BOTTLE TOP SCH (15:40)
[2018-03-24] MEDS: ATORVASTATIN 40 MG TABLET PO SCH (21:34)
[2018-03-25] MEDS: INSULIN REGULAR 100 UNIT/ML SUBCUT SCH ×4 (08:58→21:33)
[2018-03-25] MEDS: ASPIRIN EC 81 MG TABLET PO SCH (09:02)
[2018-03-25] MEDS: PANTOPRAZOLE 40 MG TABLET PO SCH (09:02)
[2018-03-25] MEDS: amLODIPine 10 MG TABLET PO SCH (09:02)
[2018-03-25] MEDS: CLOPIDOGREL 75 MG TABLET PO SCH (09:02)
[2018-03-25] MEDS: FUROSEMIDE 20 MG TABLET PO SCH ×2 (09:02→21:31)
[2018-03-25] MEDS: INSULIN GLARGINE 100 UNIT/ML SUBCUT SCH (09:03)
[2018-03-25] MEDS: METOPROLOL TARTRATE 25 MG TABLET PO SCH ×2 (09:03→21:31)
[2018-03-25] MEDS: GABAPENTIN 600 MG TABLET PO SCH ×3 (09:03→21:31)
[2018-03-25] MEDS: ENOXAPARIN 30 MG/0.3 ML SYRINGE SUBCUT SCH (09:04)
[2018-03-25] MEDS: cefTRIAXone 1,000 MG in SYRINGE 1 EACH IV SCH (09:04)
[2018-03-25] MEDS: BRIMONIDINE 0.2% OPH SOLN 5 ML BOTTLE LEFT EYE SCH ×3 (09:08→21:32)
[2018-03-25] MEDS: INSULIN LISPRO 100 UNIT/ML SUBCUT SCH ×3 (09:11→17:20)
[2018-03-25] MEDS: SODIUM HYPOCHLORITE 0.25% IRRIG 473 ML BOTTLE TOP SCH (09:14)
[2018-03-25] MEDS: SODIUM CHLORIDE 0.9% 1,000 ML IV SCH (14:45)
[2018-03-25] MEDS: ATORVASTATIN 40 MG TABLET PO SCH (21:32)
[2018-03-26] MEDS: INSULIN REGULAR 100 UNIT/ML SUBCUT SCH ×3 (07:35→16:13)
[2018-03-26] MEDS: INSULIN LISPRO 100 UNIT/ML SUBCUT SCH (07:35)
[2018-03-26] MEDS: PANTOPRAZOLE 40 MG TABLET PO SCH (09:00)
[2018-03-26] MEDS: ASPIRIN EC 81 MG TABLET PO SCH (09:00)
[2018-03-26] MEDS: ENOXAPARIN 30 MG/0.3 ML SYRINGE SUBCUT SCH (09:00)
[2018-03-26] MEDS: METOPROLOL TARTRATE 25 MG TABLET PO SCH (09:00)
[2018-03-26] MEDS: amLODIPine 10 MG TABLET PO SCH (09:00)
[2018-03-26] MEDS: CLOPIDOGREL 75 MG TABLET PO SCH (09:00)
[2018-03-26] MEDS: GABAPENTIN 600 MG TABLET PO SCH ×2 (09:00→16:11)
[2018-03-26] MEDS: FUROSEMIDE 20 MG TABLET PO SCH (09:00)
[2018-03-26] MEDS: INSULIN GLARGINE 100 UNIT/ML SUBCUT SCH (09:00)
[2018-03-26] MEDS: BRIMONIDINE 0.2% OPH SOLN 5 ML BOTTLE LEFT EYE SCH ×2 (09:00→16:11)
[2018-03-26] MEDS: SODIUM HYPOCHLORITE 0.25% IRRIG 473 ML BOTTLE TOP SCH (09:01)
[2018-03-26] MEDS: cefTRIAXone 1,000 MG in SYRINGE 1 EACH IV SCH (09:01)
[2018-03-26] MEDS: MORPHINE 4 MG/1 ML VIAL IV PRN (09:13)
[2018-03-26] MEDS: SODIUM CHLORIDE 0.9% 1,000 ML IV SCH (11:23)
[2018-03-26 16:19] VITALS: BP 163/84
== END 2018-03-26 17:12 | DRG 623 ==
LOC: SUATTDRO 03:28 → N.2E 03:28
PROVIDERS: ADMIT Internal Medicine; ATTEND Internal Medicine Geriatric Medicine

== ENCOUNTER 2019-04-22 21:56 | Inpatient (IN) ==
[2019-04-22] MEDS ORDERED: VANCOMYCIN INJ 1,000 MG in SODIUM CHLORIDE 0.9% 250 ML IV STA ×2 (22:44→22:49)
[2019-04-22 22:59] LABS: Basophils # 0.1 10*3/uL (0.0-0.2); Basophils % 0.8 % (0.0-0.8); Eosinophils # 0.3 10*3/uL (0.0-0.87); Eosinophils % 4.5 % (0.00-10.9); Hematocrit 27.4 VOL% (42.0-52.0); Hemoglobin 8.5 GM/DL (14.0-18.0); Immature Granulocytes % 0.9 %; Immature Granulocytes Absolute 0.06 #; Lymphocytes # 1.5 10*3/uL (1.4-4.0); Mean Corpuscular Volume 93.5 FL (87-102); Mean Platelet Volume 10.6 FL (9.6-12.0); Monocytes % 8.6 % (1.7-12.7); Neutrophils % 62.2 % (38.7-73.9); Platelet Count 265 T/CUMM (130-400); Red Blood Count 2.93 MC/CUMM (3.8-5.5); Red Cell Distribution Width 13.8 % (9.3-17.3); White Blood Count 6.4 T/CUMM (4-12)
[2019-04-22 23:22] LABS: Alanine Aminotransferase < 6 U/L (16-61); Albumin 2.8 G/DL (3.4-5.0); Alkaline Phosphatase 115 U/L (45-117); Aspartate Amino Transferase 10 U/L (0-37); Blood Urea Nitrogen 31 MG/DL (7-18); Calcium 7.8 MG/DL (8.5-10.1); Glucose 221 MG/DL (74-106); Osmolality,Calculated 286.8 MOS/KG (273-304); Total Protein 7.8 G/DL (6.4-8.3)
[2019-04-22] MEDS ORDERED: ONDANSETRON 4 MG/2 ML VIAL IV PRN (23:41)
[2019-04-22] MEDS ORDERED: NICOTINE 21 MG/24 HR PATCH TRANSDERM PRN (23:41)
[2019-04-22] MEDS ORDERED: ACETAMINOPHEN 325 MG TABLET PO PRN (23:41)
[2019-04-22] MEDS ORDERED: MORPHINE 4 MG/1 ML VIAL IV PRN (23:41)
[2019-04-23 00:04] LABS: Sedimentation Rate-Westergren 117 MM/HR (0-20)
[2019-04-23] MEDS ORDERED: VANCOMYCIN INJ 750 MG in SODIUM CHLORIDE 0.9% 250 ML IV PRN (00:57)
[2019-04-23] MEDS ORDERED: VANCOMYCIN INJ 1,000 MG in SODIUM CHLORIDE 0.9% 250 ML IV ONE (01:00)
[2019-04-23] MEDS ORDERED: DEXTROSE 50% 25 GM/50 ML VIAL IV PRN (06:08)
[2019-04-23] MEDS ORDERED: GLUCAGON 1 MG VIAL IM PRN (06:08)
[2019-04-23] MEDS: INSULIN REGULAR 100 UNIT/ML SUBCUT SCH ×4 (10:12→21:56)
[2019-04-23] MEDS ORDERED: EPOETIN ALFA 10,000 UNIT/1 ML VIAL IV PRN (10:20)
[2019-04-23] MEDS: amLODIPine 10 MG TABLET PO SCH (10:28)
[2019-04-23] MEDS: MORPHINE 4 MG/1 ML VIAL IV PRN ×2 (10:28→20:45)
[2019-04-23] MEDS: PANTOPRAZOLE 40 MG TABLET PO SCH (10:28)
[2019-04-23] MEDS: CARVEDILOL 6.25 MG TABLET PO SCH ×2 (10:28→17:04)
[2019-04-23] MEDS: MINOXIDIL 2.5 MG TABLET PO SCH (10:28)
[2019-04-23] MEDS ORDERED: LIDOCAINE 1% 20 ML VIAL ONE (12:24)
[2019-04-23] MEDS ORDERED: BUPIVACAINE 0.25% /EPI 10 ML VIAL ONE (12:24)
[2019-04-23] MEDS ORDERED: SODIUM CHLORIDE 0.9% 250 ML IV SCH (12:30)
[2019-04-23] MEDS ORDERED: MIDAZOLAM 2 MG/2 ML VIAL ONE (13:37)
[2019-04-23] MEDS ORDERED: fentaNYL 100 MCG/2 ML VIAL ONE (13:38)
[2019-04-23] MEDS ORDERED: KETAMINE 500 MG/10 ML VIAL ONE (13:38)
[2019-04-23] MEDS: ATORVASTATIN 80 MG TABLET PO SCH (20:46)
[2019-04-24] MEDS: MORPHINE 4 MG/1 ML VIAL IV PRN ×3 (00:03→23:24)
[2019-04-24 04:43] LABS: Basophils # 0.1 10*3/uL (0.0-0.2); Basophils % 0.7 % (0.0-0.8); Eosinophils # 0.3 10*3/uL (0.0-0.87); Eosinophils % 4.6 % (0.00-10.9); Hematocrit 26.6 VOL% (42.0-52.0); Hemoglobin 8.1 GM/DL (14.0-18.0); Immature Granulocytes Absolute 0.07 #; Lymphocytes # 1.7 10*3/uL (1.4-4.0); Lymphocytes % 24.7 % (21.2-54.2); Mean Corpuscular HGB Conc 30.5 GM/DL (32-36); Mean Platelet Volume 10.6 FL (9.6-12.0); Monocytes % 7.9 % (1.7-12.7); Neutrophils % 61.1 % (38.7-73.9); Platelet Count 304 T/CUMM (130-400); Red Blood Count 2.83 MC/CUMM (3.8-5.5); Red Cell Distribution Width 13.7 % (9.3-17.3); White Blood Count 6.9 T/CUMM (4-12)
[2019-04-24 05:12] LABS: Calcium 8.2 MG/DL (8.5-10.1); Osmolality,Calculated 284.8 MOS/KG (273-304)
[2019-04-24 05:18] LABS: Albumin 2.8 G/DL (3.4-5.0); Calcium 7.9 MG/DL (8.5-10.1)
[2019-04-24] MEDS: INSULIN REGULAR 100 UNIT/ML SUBCUT SCH ×4 (07:30→20:27)
[2019-04-24] MEDS: CARVEDILOL 6.25 MG TABLET PO SCH ×2 (08:00→20:10)
[2019-04-24] MEDS: PANTOPRAZOLE 40 MG TABLET PO SCH (09:00)
[2019-04-24] MEDS: amLODIPine 10 MG TABLET PO SCH (09:00)
[2019-04-24] MEDS: MINOXIDIL 2.5 MG TABLET PO SCH (09:00)
[2019-04-24] MEDS: cefTRIAXone 1,000 MG in SYRINGE 1 EACH IV SCH (11:00)
[2019-04-24] MEDS ORDERED: VANCOMYCIN INJ 750 MG in SODIUM CHLORIDE 0.9% 250 ML IV ONE (17:00)
[2019-04-24] MEDS: ATORVASTATIN 80 MG TABLET PO SCH (20:29)
[2019-04-25 05:05] LABS: Basophils # 0.1 10*3/uL (0.0-0.2); Basophils % 0.7 % (0.0-0.8); Eosinophils # 0.3 10*3/uL (0.0-0.87); Eosinophils % 4.2 % (0.00-10.9); Hematocrit 26.5 VOL% (42.0-52.0); Hemoglobin 8.1 GM/DL (14.0-18.0); Immature Granulocytes % 0.9 %; Immature Granulocytes Absolute 0.06 #; Lymphocytes # 1.7 10*3/uL (1.4-4.0); Lymphocytes % 25.5 % (21.2-54.2); Mean Corpuscular HGB Conc 30.6 GM/DL (32-36); Mean Corpuscular Volume 94.3 FL (87-102); Mean Platelet Volume 10.4 FL (9.6-12.0); Monocytes % 9.2 % (1.7-12.7); Neutrophils % 59.5 % (38.7-73.9); Platelet Count 311 T/CUMM (130-400); Red Blood Count 2.81 MC/CUMM (3.8-5.5); Red Cell Distribution Width 13.5 % (9.3-17.3); White Blood Count 6.7 T/CUMM (4-12)
[2019-04-25 05:38] LABS: Albumin 2.9 G/DL (3.4-5.0); Calcium 8.3 MG/DL (8.5-10.1)
[2019-04-25] MEDS: INSULIN REGULAR 100 UNIT/ML SUBCUT SCH ×2 (07:56→11:30)
[2019-04-25 08:00] VITALS: BP 154/70
[2019-04-25] MEDS: CARVEDILOL 6.25 MG TABLET PO SCH (09:13)
[2019-04-25] MEDS: MINOXIDIL 2.5 MG TABLET PO SCH (09:13)
[2019-04-25] MEDS: amLODIPine 10 MG TABLET PO SCH (09:13)
[2019-04-25] MEDS: PANTOPRAZOLE 40 MG TABLET PO SCH (09:13)
[2019-04-25] MEDS: cefTRIAXone 1,000 MG in SYRINGE 1 EACH IV SCH (11:29)
== END 2019-04-25 12:00 | disposition home or self-care (01) | DRG 987 ==
LOC: EDBD → EDUNIT# → N.ED 21:56 → N.EDINP 21:56 → N.3E 04-23 00:35
PROVIDERS: ADMIT Hospitalist; ATTEND Hospitalist
PROC: VAVDCFI (2019-04-23 12:40)

== ENCOUNTER 2020-01-25 19:44 | Inpatient (IN) ==
[2020-01-25] MEDS ORDERED: VANCOMYCIN INJ 1,000 MG in SODIUM CHLORIDE 0.9% 250 ML IV STA (20:18)
[2020-01-25] MEDS ORDERED: VANCOMYCIN 1,000 MG VIAL ONE (20:25)
[2020-01-25 20:33] LABS: Basophils % 0.1 % (0.0-0.8); Eosinophils # 0.1 10*3/uL (0.0-0.87); Hematocrit 27.4 VOL% (42.0-52.0); Hemoglobin 8.8 GM/DL (14.0-18.0); Immature Granulocytes % 1.1 %; Immature Granulocytes Absolute 0.08 #; Lymphocytes # 1.1 10*3/uL (1.4-4.0); Mean Corpuscular HGB Conc 32.1 GM/DL (32-36); Mean Corpuscular Volume 94.8 FL (87-102); Mean Platelet Volume 10.8 FL (9.6-12.0); Monocytes % 9.4 % (1.7-12.7); Neutrophils % 73.4 % (38.7-73.9); Platelet Count 175 T/CUMM (130-400); Red Blood Count 2.89 MC/CUMM (3.8-5.5); Red Cell Distribution Width 16.3 % (9.3-17.3); White Blood Count 7.1 T/CUMM (4-12)
[2020-01-25 20:40] LABS: INR 1.3; PT Patient Result 13.9 SECS (9.8-11.9)
[2020-01-25 20:46] LABS: Albumin 1.9 G/DL (3.4-5.0); Bilirubin,Total 0.8 MG/DL (0.2-1.0); Calcium 7.4 MG/DL (8.5-10.1); Total Protein 5.8 G/DL (6.4-8.3)
[2020-01-25] MEDS ORDERED: PIPERACILLIN/TAZOBACTAM 3,375 MG in SODIUM CHLORIDE 0.9% 100 ML IV STA (20:49)
[2020-01-25] MEDS ORDERED: DEXTROSE 50% 25 GM/50 ML SYRINGE IV ONE (21:21)
[2020-01-25] MEDS ORDERED: LIDOCAINE 1%/EPI INJ 20 ML VIAL ONE (22:02)
[2020-01-25] MEDS ORDERED: BUPIVACAINE MPF 0.25% 30 ML VIAL ONE (22:02)
[2020-01-25] MEDS ORDERED: HEPARIN 5,000 UNIT/1 ML VIAL ONE (22:02)
[2020-01-25] MEDS ORDERED: SUGAMMADEX 200 MG/2 ML VIAL IV ONE (23:35)
[2020-01-25] MEDS ORDERED: LIDOCAINE 2% 5 ML VIAL ONE (23:51)
[2020-01-25] MEDS ORDERED: fentaNYL 100 MCG/2 ML VIAL ONE (23:51)
[2020-01-25] MEDS ORDERED: ONDANSETRON 4 MG/2 ML VIAL ONE (23:51)
[2020-01-25] MEDS ORDERED: SEVOFLURANE 1 UNIT/15 MINUTE INH ONE (23:51)
[2020-01-25] MEDS ORDERED: ePHEDrine 50 MG/ML AMP ONE (23:51)
[2020-01-25] MEDS ORDERED: PHENYLEPHRINE 1 MG/10 ML SYRINGE IV ONE (23:52)
[2020-01-25] MEDS ORDERED: GLYCOPYRROLATE 0.4 MG/2 ML VIAL ONE (23:52)
[2020-01-25] MEDS ORDERED: ETOMIDATE 40 MG/20 ML VIAL IV ONE (23:52)
[2020-01-25] MEDS ORDERED: NEOSTIGMINE 10 MG/10 ML VIAL ONE (23:52)
[2020-01-25] MEDS ORDERED: SODIUM CHLORIDE 0.9% 500 ML IV ONE (23:52)
[2020-01-25] MEDS ORDERED: ROCURONIUM 100 MG/10 ML VIAL IV ONE (23:52)
[2020-01-25] MEDS ORDERED: PHENYLEPHRINE 10 MG/1 ML VIAL IV ONE (23:52)
[2020-01-26] MEDS ORDERED: GLUCAGON 1 MG VIAL IM PRN ×2 (00:04→01:52)
[2020-01-26] MEDS ORDERED: DEXTROSE 50% 25 GM/50 ML VIAL IV PRN ×2 (00:04→01:52)
[2020-01-26 00:23] LABS: Basophils % 0.2 % (0.0-0.8); Eosinophils % 0.1 % (0.00-10.9); Hematocrit 35.7 VOL% (42.0-52.0); Hemoglobin 11.4 GM/DL (14.0-18.0); Immature Granulocytes % 1.6 %; Immature Granulocytes Absolute 0.17 #; Lymphocytes # 1.4 10*3/uL (1.4-4.0); Lymphocytes % 13.2 % (21.2-54.2); Mean Corpuscular HGB Conc 31.9 GM/DL (32-36); Mean Corpuscular Volume 90.4 FL (87-102); Mean Platelet Volume 10.7 FL (9.6-12.0); Monocytes % 8.7 % (1.7-12.7); NRBC # 0.02 10*3/uL; Neutrophils % 76.2 % (38.7-73.9); Platelet Count 176 T/CUMM (130-400); Red Blood Count 3.95 MC/CUMM (3.8-5.5); Red Cell Distribution Width 15.5 % (9.3-17.3); White Blood Count 10.8 T/CUMM (4-12)
[2020-01-26] MEDS ORDERED: ALBUMIN 5% 12.5 GM in PREMIX 1 EACH IV ONE (00:45)
[2020-01-26] MEDS ORDERED: ALBUMIN 5% 12.5 GM/250 ML VIAL IV ONE (00:46)
[2020-01-26] MEDS ORDERED: ACETAMINOPHEN 325 MG TABLET PO PRN (01:52)
[2020-01-26] MEDS ORDERED: HYDROmorphone 2 MG/1 ML VIAL IV PRN (01:52)
[2020-01-26] MEDS ORDERED: ONDANSETRON 4 MG/2 ML VIAL IV PRN (01:52)
[2020-01-26] MEDS ORDERED: ATORVASTATIN 80 MG TABLET PO SCH (02:00)
[2020-01-26] MEDS: METOPROLOL SUCCINATE XL 25 MG TABLET PO SCH ×2 (03:08→09:12)
[2020-01-26] MEDS: INSULIN REGULAR 100 UNIT/ML SUBCUT SCH ×5 (03:22→15:22)
[2020-01-26 06:44] LABS: Basophils % 0.3 % (0.0-0.8); Eosinophils % 0.4 % (0.00-10.9); Immature Granulocytes % 1.3 %; Lymphocytes # 1.8 10*3/uL (1.4-4.0); Lymphocytes % 24.3 % (21.2-54.2); Mean Corpuscular HGB Conc 31.5 GM/DL (32-36); Mean Corpuscular Volume 91.2 FL (87-102); Mean Platelet Volume 11.5 FL (9.6-12.0); Monocytes % 10.1 % (1.7-12.7); Neutrophils % 63.6 % (38.7-73.9); Platelet Count 150 T/CUMM (130-400); Red Cell Distribution Width 15.7 % (9.3-17.3)
[2020-01-26 06:56] LABS: Hemoglobin 8.5 GM/DL (14.0-18.0); Red Blood Count 2.96 MC/CUMM (3.8-5.5); White Blood Count 7.4 T/CUMM (4-12)
[2020-01-26 07:11] LABS: Hypochromasia Slight; Ovalocytes Slight; Platelet Estimate Adequate
[2020-01-26 07:17] LABS: Albumin 1.7 G/DL (3.4-5.0); Bilirubin,Total 1.1 MG/DL (0.2-1.0); Calcium 6.8 MG/DL (8.5-10.1); Osmolality,Calculated 284.1 MOS/KG (273-304); Total Protein 5.1 G/DL (6.4-8.3)
[2020-01-26] MEDS ORDERED: amLODIPine 10 MG TABLET PO SCH (09:00)
[2020-01-26] MEDS ORDERED: ASPIRIN EC 81 MG TABLET PO SCH (09:00)
[2020-01-26] MEDS ORDERED: PANTOPRAZOLE 40 MG TABLET PO SCH (09:00)
[2020-01-26] MEDS ORDERED: CLOPIDOGREL 75 MG TABLET PO SCH (09:00)
[2020-01-26] MEDS: GABAPENTIN 600 MG TABLET PO SCH ×2 (09:11→15:45)
[2020-01-26] MEDS: SEVELAMER CARBONATE 800 MG TABLET PO SCH ×2 (09:12→12:21)
[2020-01-26] MEDS ORDERED: PIPERACILLIN/TAZOBACTAM 3,375 MG in SODIUM CHLORIDE 0.9% 100 ML IV SCH (10:00)
[2020-01-26 12:30] VITALS: BP 118/64
[2020-01-26] MEDS ORDERED: POLYETHYLENE GLYCOL POWDER 17 GM PACK PO SCH (12:30)
[2020-01-26] MEDS ORDERED: SODIUM HYPOCHLORITE 0.25% IRRIG 473 ML BOTTLE TOP SCH (13:30)
[2020-01-26] MEDS ORDERED: LEVOFLOXACIN INJ 250 MG in PREMIX 1 EACH IV ONE (15:32)
== END 2020-01-26 16:44 | disposition home health service (06) | DRG 252 ==
LOC: EDUNIT# → EDBD → N.ED 19:44 → N.EDINP 20:50 → N.3E 01-26 01:50
PROVIDERS: ADMIT Student in an Organized Health Care Education/Training Program; ATTEND Student in an Organized Health Care Education/Training Program

== ENCOUNTER 2020-04-24 22:59 | Inpatient (IN) ==
[2020-04-25] MEDS ORDERED: GLUCAGON 1 MG VIAL IM PRN (00:22)
[2020-04-25] MEDS ORDERED: ONDANSETRON 4 MG/2 ML VIAL IV PRN (00:22)
[2020-04-25] MEDS ORDERED: DEXTROSE 50% 25 GM/50 ML VIAL IV PRN (00:22)
[2020-04-25] MEDS ORDERED: VANCOMYCIN INJ 750 MG in SODIUM CHLORIDE 0.9% 250 ML IV PRN (01:09)
[2020-04-25] MEDS: PIPERACILLIN/TAZOBACTAM 3,375 MG in SODIUM CHLORIDE 0.9% 100 ML IV SCH ×2 (02:37→21:01)
[2020-04-25] MEDS: MORPHINE 4 MG/1 ML VIAL IV PRN ×3 (03:23→20:57)
[2020-04-25] MEDS: INSULIN REGULAR 100 UNIT/ML SUBCUT SCH ×4 (08:07→21:01)
[2020-04-25 09:03] LABS: Basophils % 0.4 % (0.0-0.8); Eosinophils # 0.1 10*3/uL (0.0-0.87); Eosinophils % 1.7 % (0.00-10.9); Hematocrit 31.8 VOL% (42.0-52.0); Hemoglobin 10.1 GM/DL (14.0-18.0); Immature Granulocytes % 0.2 %; Immature Granulocytes Absolute 0.02 #; Lymphocytes # 1.7 10*3/uL (1.4-4.0); Lymphocytes % 20.1 % (21.2-54.2); Mean Corpuscular HGB Conc 31.8 GM/DL (32-36); Mean Corpuscular Volume 87.6 FL (87-102); Mean Platelet Volume 10.1 FL (9.6-12.0); Monocytes % 5.3 % (1.7-12.7); Neutrophils % 72.3 % (38.7-73.9); Platelet Count 270 T/CUMM (130-400); Red Blood Count 3.63 MC/CUMM (3.8-5.5); Red Cell Distribution Width 14.6 % (9.3-17.3); White Blood Count 8.3 T/CUMM (4-12)
[2020-04-25] MEDS: PANTOPRAZOLE 40 MG TABLET PO SCH (09:04)
[2020-04-25] MEDS: hydrALAZINE 20 MG/1 ML VIAL IV PRN (09:05)
[2020-04-25 09:22] LABS: Alanine Aminotransferase < 9 U/L (16-61); Albumin 2.5 G/DL (3.4-5.0); Alkaline Phosphatase 75 U/L (45-117); Aspartate Amino Transferase 10 U/L (0-37); Blood Urea Nitrogen 39 MG/DL (7-18); Calcium 8.2 MG/DL (8.5-10.1); Estimated Glom Filtration Rate 8 ML/MIN; Glucose 84 MG/DL (74-106); Osmolality,Calculated 271.5 MOS/KG (273-304); Total Protein 6.8 G/DL (6.4-8.3)
[2020-04-25] MEDS: SODIUM HYPOCHLORITE 0.25% IRRIG 473 ML BOTTLE TOP SCH (10:30)
[2020-04-25] MEDS ORDERED: HEPARIN 10,000 UNIT/10 ML VIAL IV ONE (13:45)
[2020-04-25] MEDS ORDERED: VANCOMYCIN INJ 750 MG in SODIUM CHLORIDE 0.9% 250 ML IV ONE (17:00)
[2020-04-26] MEDS: MORPHINE 4 MG/1 ML VIAL IV PRN ×3 (04:55→21:46)
[2020-04-26] MEDS: SODIUM HYPOCHLORITE 0.25% IRRIG 473 ML BOTTLE TOP SCH ×2 (07:42→09:04)
[2020-04-26] MEDS: INSULIN REGULAR 100 UNIT/ML SUBCUT SCH ×4 (08:07→21:47)
[2020-04-26] MEDS: PIPERACILLIN/TAZOBACTAM 3,375 MG in SODIUM CHLORIDE 0.9% 100 ML IV SCH (08:13)
[2020-04-26] MEDS: MULTIVITAMIN (BEROCCA) TABLET PO SCH (08:15)
[2020-04-26] MEDS: PANTOPRAZOLE 40 MG TABLET PO SCH (08:15)
[2020-04-26] MEDS ORDERED: HEPARIN/NACL 0.9% 2 UNITS/ML 2,000 ML IV ONE (12:53)
[2020-04-26] MEDS ORDERED: fentaNYL 100 MCG/2 ML VIAL ONE (13:58)
[2020-04-26] MEDS ORDERED: MIDAZOLAM 2 MG/2 ML VIAL ONE (13:58)
[2020-04-26] MEDS ORDERED: HEPARIN 5,000 UNIT/1 ML VIAL ONE (14:54)
[2020-04-26] MEDS ORDERED: MIDAZOLAM 2 MG/2 ML VIAL IV ONE (15:05)
[2020-04-26] MEDS ORDERED: fentaNYL 100 MCG/2 ML VIAL IV ONE (15:05)
[2020-04-26] MEDS ORDERED: HEPARIN 5,000 UNIT/1 ML VIAL IV ONE ×2 (15:05→15:18)
[2020-04-26] MEDS ORDERED: HEPARIN 1,000 UNIT/1 ML VIAL ONE (15:14)
[2020-04-26] MEDS ORDERED: NITROGLYCERIN DRIP 50 MG/250 ML BOTTLE IV ONE (15:53)
[2020-04-26] MEDS ORDERED: ALTEPLASE 2 MG VIAL ONE (16:00)
[2020-04-26] MEDS: hydrALAZINE 20 MG/1 ML VIAL IV PRN (17:10)
[2020-04-26] MEDS: HEPARIN DRIP 25,000 UNITS/500 ML PREMIX IV SCH (17:11)
[2020-04-27] MEDS: MORPHINE 4 MG/1 ML VIAL IV PRN ×3 (02:15→20:48)
[2020-04-27 06:21] LABS: Basophils # 0.1 10*3/uL (0.0-0.2); Basophils % 0.6 % (0.0-0.8); Eosinophils # 0.4 10*3/uL (0.0-0.87); Eosinophils % 4.5 % (0.00-10.9); Hematocrit 29.4 VOL% (42.0-52.0); Immature Granulocytes % 0.6 %; Immature Granulocytes Absolute 0.05 #; Lymphocytes # 1.8 10*3/uL (1.4-4.0); Lymphocytes % 22.6 % (21.2-54.2); Mean Corpuscular HGB Conc 30.6 GM/DL (32-36); Mean Corpuscular Volume 89.6 FL (87-102); Mean Platelet Volume 10.2 FL (9.6-12.0); Monocytes % 9.1 % (1.7-12.7); Neutrophils % 62.6 % (38.7-73.9); Platelet Count 266 T/CUMM (130-400); Red Blood Count 3.28 MC/CUMM (3.8-5.5); Red Cell Distribution Width 14.7 % (9.3-17.3); White Blood Count 7.9 T/CUMM (4-12)
[2020-04-27 06:58] LABS: Osmolality,Calculated 271.4 MOS/KG (273-304)
[2020-04-27] MEDS: INSULIN REGULAR 100 UNIT/ML SUBCUT SCH ×4 (07:16→21:00)
[2020-04-27] MEDS: SODIUM HYPOCHLORITE 0.25% IRRIG 473 ML BOTTLE TOP SCH (08:20)
[2020-04-27] MEDS ORDERED: HEPARIN 10,000 UNIT/10 ML VIAL IV PRN (10:43)
[2020-04-27] MEDS: PANTOPRAZOLE 40 MG TABLET PO SCH (14:32)
[2020-04-27] MEDS: MULTIVITAMIN (BEROCCA) TABLET PO SCH (14:34)
[2020-04-27] MEDS: HEPARIN DRIP 25,000 UNITS/500 ML PREMIX IV SCH (16:30)
[2020-04-28] MEDS: MORPHINE 4 MG/1 ML VIAL IV PRN ×5 (00:05→23:50)
[2020-04-28] MEDS ORDERED: ceFAZolin 1,000 MG in SYRINGE 1 EACH IV ONE (06:33)
[2020-04-28 06:58] LABS: Calcium 8.5 MG/DL (8.5-10.1); Osmolality,Calculated 269.2 MOS/KG (273-304)
[2020-04-28] MEDS: INSULIN REGULAR 100 UNIT/ML SUBCUT SCH ×4 (07:07→20:39)
[2020-04-28] MEDS: MULTIVITAMIN (BEROCCA) TABLET PO SCH (08:20)
[2020-04-28] MEDS: PANTOPRAZOLE 40 MG TABLET PO SCH (08:20)
[2020-04-28] MEDS: SODIUM HYPOCHLORITE 0.25% IRRIG 473 ML BOTTLE TOP SCH (08:30)
[2020-04-28] MEDS: hydrALAZINE 20 MG/1 ML VIAL IV PRN ×2 (09:19→23:57)
[2020-04-28] MEDS ORDERED: LIDOCAINE 1% 20 ML VIAL ONE (10:47)
[2020-04-28] MEDS ORDERED: BUPIVACAINE MPF 0.25% 30 ML VIAL ONE (10:47)
[2020-04-28] MEDS ORDERED: SODIUM CHLORIDE 0.9% 250 ML IV SCH (11:30)
[2020-04-28] MEDS ORDERED: BACITRACIN OINT 0.9 GM PACK TOP ONE (12:33)
[2020-04-28] MEDS ORDERED: fentaNYL 100 MCG/2 ML VIAL ONE (13:02)
[2020-04-28] MEDS ORDERED: LIDOCAINE 2% 5 ML VIAL ONE (13:02)
[2020-04-28] MEDS ORDERED: SEVOFLURANE 1 UNIT/15 MINUTE INH ONE (13:02)
[2020-04-28] MEDS ORDERED: MIDAZOLAM 2 MG/2 ML VIAL ONE (13:02)
[2020-04-28] MEDS ORDERED: ONDANSETRON 4 MG/2 ML VIAL ONE (13:03)
[2020-04-28] MEDS ORDERED: ePHEDrine 50 MG/ML VIAL ONE (13:03)
[2020-04-28] MEDS ORDERED: SODIUM CHLORIDE 0.9% 250 ML IV ONE (13:03)
[2020-04-28] MEDS ORDERED: ETOMIDATE 40 MG/20 ML VIAL IV ONE (13:03)
[2020-04-28] MEDS ORDERED: diphenhydrAMINE CAP 50 MG CAPSULE PO ONE (16:34)
[2020-04-28] MEDS: ceFAZolin 1,000 MG in SYRINGE 1 EACH IV SCH (20:39)
[2020-04-29] MEDS: MORPHINE 4 MG/1 ML VIAL IV PRN ×4 (04:52→20:38)
[2020-04-29] MEDS: ceFAZolin 1,000 MG in SYRINGE 1 EACH IV SCH (06:00)
[2020-04-29] MEDS ORDERED: ceFAZolin 1,000 MG in SYRINGE 1 EACH IV SCH (06:00)
[2020-04-29] MEDS: INSULIN REGULAR 100 UNIT/ML SUBCUT SCH ×4 (08:19→20:38)
[2020-04-29] MEDS: MULTIVITAMIN (BEROCCA) TABLET PO SCH (13:29)
[2020-04-29] MEDS: PANTOPRAZOLE 40 MG TABLET PO SCH (13:29)
[2020-04-29] MEDS: SODIUM HYPOCHLORITE 0.25% IRRIG 473 ML BOTTLE TOP SCH (13:30)
[2020-04-30] MEDS: MORPHINE 4 MG/1 ML VIAL IV PRN ×3 (02:15→10:17)
[2020-04-30] MEDS: PANTOPRAZOLE 40 MG TABLET PO SCH (09:13)
[2020-04-30] MEDS: SODIUM HYPOCHLORITE 0.25% IRRIG 473 ML BOTTLE TOP SCH (09:13)
[2020-04-30] MEDS: MULTIVITAMIN (BEROCCA) TABLET PO SCH (09:13)
[2020-04-30] MEDS: INSULIN REGULAR 100 UNIT/ML SUBCUT SCH ×2 (10:21→13:59)
[2020-04-30 14:03] VITALS: BP 114/78
== END 2020-04-30 17:54 | disposition home or self-care (01) | DRG 255 ==
LOC: EDBD → EDUNIT# → N.ED 22:59 → SUATTDRO 04-25 00:22 → N.EDINP 04-25 00:22 → N.2E 04-25 00:54 → N.3E 04-25 18:38
PROVIDERS: ADMIT Internal Medicine; ATTEND Phlebology

== ENCOUNTER 2020-07-16 11:30 | Inpatient (IN) ==
[2020-07-16 12:18] LABS: Basophils % 0.3 % (0.0-0.8); Eosinophils % 0.2 % (0.00-10.9); Hematocrit 28.7 VOL% (42.0-52.0); Hemoglobin 9.2 GM/DL (14.0-18.0); Immature Granulocytes % 0.7 %; Immature Granulocytes Absolute 0.06 #; Lymphocytes # 0.4 10*3/uL (1.4-4.0); Mean Corpuscular HGB Conc 32.1 GM/DL (32-36); Mean Corpuscular Volume 84.4 FL (87-102); Mean Platelet Volume 10.2 FL (9.6-12.0); Monocytes % 4.4 % (1.7-12.7); Neutrophils % 89.4 % (38.7-73.9); Platelet Count 261 T/CUMM (130-400); Red Cell Distribution Width 16.9 % (9.3-17.3); White Blood Count 8.7 T/CUMM (4-12)
[2020-07-16 12:56] LABS: Albumin 2.2 G/DL (3.4-5.0); Bilirubin,Total 0.5 MG/DL (0.2-1.0); Calcium 6.4 MG/DL (8.5-10.1); Osmolality,Calculated 286.7 MOS/KG (273-304); Potassium 3.7 MMOL/L (3.5-5.1); Total Protein 7.1 G/DL (6.4-8.3)
[2020-07-16 13:23] LABS: INR 1.3; PT Patient Result 14.1 SECS (9.8-11.9)
[2020-07-16] MEDS ORDERED: ONDANSETRON 4 MG/2 ML VIAL IV PRN (14:35)
[2020-07-16] MEDS ORDERED: MORPHINE 4 MG/1 ML VIAL IV PRN (14:35)
[2020-07-16] MEDS ORDERED: DOCUSATE SODIUM 100 MG CAPSULE PO PRN (14:35)
[2020-07-16] MEDS ORDERED: DEXTROSE 50% 25 GM/50 ML VIAL IV PRN (14:35)
[2020-07-16] MEDS ORDERED: ACETAMINOPHEN 325 MG TABLET PO PRN (14:35)
[2020-07-16] MEDS ORDERED: GLUCAGON 1 MG VIAL IM PRN (14:35)
[2020-07-16] MEDS ORDERED: HEPARIN DRIP 25,000 UNITS/500 ML PREMIX IV SCH (15:00)
[2020-07-16] MEDS ORDERED: INSULIN LISPRO 100 UNIT/ML SUBCUT SCH (17:00)
[2020-07-16] MEDS: dilTIAZem Drip 125 MG/125 ML PREMIX IV SCH (20:21)
[2020-07-16] MEDS: INSULIN LISPRO 100 UNIT/ML SUBCUT SCH (22:05)
[2020-07-16] MEDS ORDERED: HEPARIN 5,000 UNIT/1 ML VIAL IV ONE (22:08)
[2020-07-17 05:44] LABS: Basophils % 0.3 % (0.0-0.8); Eosinophils % 0.1 % (0.00-10.9); Hematocrit 29.3 VOL% (42.0-52.0); Hemoglobin 9.3 GM/DL (14.0-18.0); Immature Granulocytes % 0.7 %; Lymphocytes # 0.9 10*3/uL (1.4-4.0); Lymphocytes % 6.5 % (21.2-54.2); Mean Corpuscular HGB Conc 31.7 GM/DL (32-36); Mean Platelet Volume 10.5 FL (9.6-12.0); Monocytes % 3.8 % (1.7-12.7); Neutrophils % 88.6 % (38.7-73.9); Platelet Count 314 T/CUMM (130-400); Red Blood Count 3.49 MC/CUMM (3.8-5.5); Red Cell Distribution Width 16.8 % (9.3-17.3); White Blood Count 13.8 T/CUMM (4-12)
[2020-07-17] MEDS: INSULIN LISPRO 100 UNIT/ML SUBCUT SCH ×4 (06:16→23:55)
[2020-07-17 06:21] LABS: ABG Base Excess -14.2 MMOL/L (-2.5-2.5); ABG HCO3 13.2 MMOL/L (20-26); ABG Oxygen Saturation 99.3 % (95-100); ABG PCO2 36.3 MM HG (35-48); ABG PO2 381.4 MM HG (80-95); ABG TCO2 14.3 MMOL/L (23-27); Allen Test Positive; Pt O2 Delivery Device Ventilator
[2020-07-17 06:24] LABS: ABG PH 7.178 (7.35-7.45)
[2020-07-17] MEDS ORDERED: SODIUM BICARBONATE 50 MEQ/50 ML VIAL IV ONE ×2 (06:28)
[2020-07-17 06:33] LABS: Bilirubin,Total 0.5 MG/DL (0.2-1.0); Calcium 6.4 MG/DL (8.5-10.1); Osmolality,Calculated 292.7 MOS/KG (273-304); Potassium 3.5 MMOL/L (3.5-5.1); Total Protein 7.1 G/DL (6.4-8.3)
[2020-07-17 06:35] LABS: Basophils % 0.2 % (0.0-0.8); Eosinophils # 0.1 10*3/uL (0.0-0.87); Eosinophils % 0.4 % (0.00-10.9); Hematocrit 32.4 VOL% (42.0-52.0); Immature Granulocytes % 1.2 %; Lymphocytes # 3.8 10*3/uL (1.4-4.0); Lymphocytes % 22.3 % (21.2-54.2); Mean Corpuscular HGB Conc 30.9 GM/DL (32-36); Mean Corpuscular Volume 87.1 FL (87-102); Mean Platelet Volume 10.3 FL (9.6-12.0); Monocytes % 3.6 % (1.7-12.7); Neutrophils % 72.3 % (38.7-73.9); Platelet Count 336 T/CUMM (130-400); Red Blood Count 3.72 MC/CUMM (3.8-5.5); Red Cell Distribution Width 17.1 % (9.3-17.3); White Blood Count 17.1 T/CUMM (4-12)
[2020-07-17 06:41] LABS: INR 1.2; PT Patient Result 12.8 SECS (9.8-11.9); Partial Thromboplastin Time 41.3 SECS (23.9-33.8)
[2020-07-17 07:15] LABS: CKMB % 2.9 %
[2020-07-17 07:16] LABS: Troponin I 8.56 NG/ML (0.00-0.045)
[2020-07-17] MEDS: HEPARIN DRIP 25,000 UNITS/500 ML PREMIX IV SCH (07:18)
[2020-07-17] MEDS: dilTIAZem Drip 125 MG/125 ML PREMIX IV SCH ×2 (07:19→20:46)
[2020-07-17 07:54] LABS: Albumin 2.3 G/DL (3.4-5.0); Bilirubin,Total 0.5 MG/DL (0.2-1.0); Osmolality,Calculated 290.8 MOS/KG (273-304); Potassium 3.2 MMOL/L (3.5-5.1); Total Protein 7.9 G/DL (6.4-8.3)
[2020-07-17 09:13] LABS: Allen Test Positive; Pt O2 Delivery Device Ventilator
[2020-07-17 09:14] LABS: ABG Base Excess -8.5 MMOL/L (-2.5-2.5); ABG HCO3 17.6 MMOL/L (20-26); ABG PCO2 26.8 MM HG (35-48); ABG PH 7.374 (7.35-7.45); ABG TCO2 14.4 MMOL/L (23-27)
[2020-07-17] MEDS ORDERED: DIAZEPAM 10 MG/2 ML SYRINGE IV ONE (16:13)
[2020-07-17] MEDS ORDERED: DIAZEPAM 10 MG/2 ML SYRINGE ONE (16:14)
[2020-07-17] MEDS ORDERED: NOREPINEPHRINE 4 MG/4 ML VIAL IV ONE (16:14)
[2020-07-17] MEDS ORDERED: LORazepam 2 MG/1 ML VIAL IV PRN (21:35)
[2020-07-18 03:05] LABS: ABG Base Excess -2.1 MMOL/L (-2.5-2.5); ABG HCO3 22.7 MMOL/L (20-26); ABG PCO2 25.3 MM HG (35-48); ABG PH 7.506 (7.35-7.45); ABG TCO2 18.3 MMOL/L (23-27); Allen Test Positive; Pt O2 Delivery Device Ventilator
[2020-07-18 04:27] LABS: Basophils % 0.2 % (0.0-0.8); Eosinophils % 0.5 % (0.00-10.9); Hemoglobin 8.3 GM/DL (14.0-18.0); Immature Granulocytes % 0.7 %; Immature Granulocytes Absolute 0.06 #; Lymphocytes # 0.9 10*3/uL (1.4-4.0); Lymphocytes % 11.3 % (21.2-54.2); Mean Corpuscular HGB Conc 33.2 GM/DL (32-36); Mean Corpuscular Volume 81.4 FL (87-102); Mean Platelet Volume 10.3 FL (9.6-12.0); Neutrophils % 82.3 % (38.7-73.9); Platelet Count 279 T/CUMM (130-400); Red Blood Count 3.07 MC/CUMM (3.8-5.5); Red Cell Distribution Width 16.7 % (9.3-17.3); White Blood Count 8.2 T/CUMM (4-12)
[2020-07-18 04:49] LABS: Calcium 6.5 MG/DL (8.5-10.1); Osmolality,Calculated 287.1 MOS/KG (273-304); Potassium 2.8 MMOL/L (3.5-5.1)
[2020-07-18 04:52] LABS: Albumin 1.7 G/DL (3.4-5.0); Bilirubin,Total 0.8 MG/DL (0.2-1.0); Calcium 6.5 MG/DL (8.5-10.1); Potassium 2.7 MMOL/L (3.5-5.1); Total Protein 6.1 G/DL (6.4-8.3)
[2020-07-18 05:28] LABS: INR 1.3; PT Patient Result 13.8 SECS (9.8-11.9)
[2020-07-18 05:34] LABS: Partial Thromboplastin Time 41.3 SECS (23.9-33.8)
[2020-07-18] MEDS: INSULIN LISPRO 100 UNIT/ML SUBCUT SCH ×4 (06:33→23:33)
[2020-07-18] MEDS ORDERED: LORazepam 2 MG/1 ML VIAL ONE (08:15)
[2020-07-18] MEDS ORDERED: LORazepam 2 MG/1 ML VIAL IV ONE (08:30)
[2020-07-18] MEDS: POTASSIUM CHLORIDE 20 MEQ/15 ML UDCUP PER TUBE PRN ×4 (08:55→15:00)
[2020-07-18] MEDS ORDERED: ASPIRIN EC 81 MG TABLET PO SCH (10:00)
[2020-07-18] MEDS ORDERED: carvediloL 3.125 MG TABLET PO SCH (10:00)
[2020-07-18] MEDS ORDERED: LOSARTAN 25 MG TABLET PO SCH (10:30)
[2020-07-18] MEDS ORDERED: ISOSORBIDE MONONITRATE 30 MG TABLET PO SCH (10:30)
[2020-07-18] MEDS: ROSUVASTATIN 20 MG TABLET PO SCH (11:59)
[2020-07-18] MEDS: ISOSORBIDE DINITRATE 10 MG TABLET PER TUBE SCH ×2 (12:09→21:15)
[2020-07-18] MEDS: HEPARIN DRIP 25,000 UNITS/500 ML PREMIX IV SCH (12:23)
[2020-07-18] MEDS ORDERED: HEPARIN 10,000 UNIT/10 ML VIAL IV SCH (12:45)
[2020-07-18] MEDS: SKIN HEALING OINT (AQUAPHOR) 50 GM TUBE TOP SCH (15:45)
[2020-07-19 04:44] LABS: ABG Base Excess -0.7 MMOL/L (-2.5-2.5); ABG HCO3 23.9 MMOL/L (20-26); ABG Oxygen Saturation 99.9 % (95-100); ABG PCO2 29.2 MM HG (35-48); ABG PH 7.485 (7.35-7.45); ABG TCO2 20.3 MMOL/L (23-27); Allen Test Positive; Pt O2 Delivery Device Ventilator
[2020-07-19 05:43] LABS: Basophils % 0.4 % (0.0-0.8); Eosinophils # 0.1 10*3/uL (0.0-0.87); Eosinophils % 0.9 % (0.00-10.9); Hematocrit 28.2 VOL% (42.0-52.0); Hemoglobin 8.9 GM/DL (14.0-18.0); Immature Granulocytes % 1.1 %; Immature Granulocytes Absolute 0.09 #; Lymphocytes # 1.1 10*3/uL (1.4-4.0); Lymphocytes % 13.9 % (21.2-54.2); Mean Corpuscular HGB Conc 31.6 GM/DL (32-36); Mean Corpuscular Volume 84.2 FL (87-102); Mean Platelet Volume 10.7 FL (9.6-12.0); Neutrophils % 79.7 % (38.7-73.9); Platelet Count 261 T/CUMM (130-400); Red Blood Count 3.35 MC/CUMM (3.8-5.5); Red Cell Distribution Width 17.3 % (9.3-17.3)
[2020-07-19 06:05] LABS: Osmolality,Calculated 281.1 MOS/KG (273-304); Potassium 3.8 MMOL/L (3.5-5.1)
[2020-07-19] MEDS: INSULIN LISPRO 100 UNIT/ML SUBCUT SCH ×3 (06:19→19:48)
[2020-07-19] MEDS: HEPARIN DRIP 25,000 UNITS/500 ML PREMIX IV SCH (09:00)
[2020-07-19] MEDS: SKIN HEALING OINT (AQUAPHOR) 50 GM TUBE TOP SCH (09:00)
[2020-07-19 09:34] LABS: CKMB % 6.5 %
[2020-07-19 09:35] LABS: Troponin I 5.14 NG/ML (0.00-0.045)
[2020-07-19] MEDS: LORazepam 2 MG/1 ML VIAL IV PRN ×3 (09:51→22:15)
[2020-07-19] MEDS: ISOSORBIDE DINITRATE 10 MG TABLET PER TUBE SCH (10:00)
[2020-07-19] MEDS: ROSUVASTATIN 20 MG TABLET PO SCH (10:00)
[2020-07-19] MEDS: ASPIRIN CHEW 81 MG TABLET PO SCH (10:00)
[2020-07-19] MEDS ORDERED: SODIUM CHLORIDE 0.9% 250 ML IV ONE (12:17)
[2020-07-19] MEDS ORDERED: METOPROLOL TARTRATE 5 MG/5 ML VIAL IV ONE (12:17)
[2020-07-19] MEDS: NOREPINEPHRINE 8 MG in SODIUM CHLORIDE 0.9% 242 ML IV PRN ×3 (14:09→23:19)
[2020-07-19 15:31] LABS: ABG Base Excess -5.9 MMOL/L (-2.5-2.5); ABG HCO3 19.6 MMOL/L (20-26); ABG Oxygen Saturation 97.6 % (95-100); ABG PCO2 32.3 MM HG (35-48); ABG PH 7.369 (7.35-7.45); Allen Test Positive; Pt O2 Delivery Device Ventilator
[2020-07-19] MEDS ORDERED: SODIUM BICARBONATE 50 MEQ/50 ML VIAL IV ONE ×4 (15:31→22:10)
[2020-07-19 15:34] LABS: Basophils % 0.3 % (0.0-0.8); Eosinophils % 0.4 % (0.00-10.9); Hematocrit 27.3 VOL% (42.0-52.0); Hemoglobin 8.6 GM/DL (14.0-18.0); Immature Granulocytes % 0.9 %; Immature Granulocytes Absolute 0.08 #; Lymphocytes # 1.3 10*3/uL (1.4-4.0); Lymphocytes % 13.5 % (21.2-54.2); Mean Corpuscular HGB Conc 31.5 GM/DL (32-36); Mean Corpuscular Volume 85.3 FL (87-102); Mean Platelet Volume 11.6 FL (9.6-12.0); Monocytes % 3.8 % (1.7-12.7); Neutrophils % 81.1 % (38.7-73.9); Platelet Count 204 T/CUMM (130-400); Red Cell Distribution Width 17.4 % (9.3-17.3); White Blood Count 9.4 T/CUMM (4-12)
[2020-07-19] MEDS: HYDROCORTISONE 100 MG VIAL IV SCH ×2 (15:52→23:52)
[2020-07-19 16:02] LABS: Bilirubin,Total 0.6 MG/DL (0.2-1.0); Calcium 7.2 MG/DL (8.5-10.1); Osmolality,Calculated 280.5 MOS/KG (273-304); Potassium 4.1 MMOL/L (3.5-5.1); Total Protein 7.1 G/DL (6.4-8.3)
[2020-07-19] MEDS ORDERED: NOREPINEPHRINE 4 MG/4 ML VIAL IV ONE ×2 (18:28→22:12)
[2020-07-19 21:32] LABS: ABG Base Excess -6.6 MMOL/L (-2.5-2.5); ABG HCO3 17.7 MMOL/L (20-26); ABG Oxygen Saturation 99.3 % (95-100); ABG PCO2 31.7 MM HG (35-48); ABG PH 7.366 (7.35-7.45); ABG PO2 250.7 MM HG (80-95); ABG TCO2 18.7 MMOL/L (23-27); Glucose Heart Surgery 247 MG/DL (74-106); Hemoglobin Heart Surgery 11.5 G/DL (14.0-18.0); Potassium Heart/CVR 4.3 MMOL/L (3.5-5.1)
[2020-07-20] MEDS ORDERED: SODIUM BICARBONATE 50 MEQ/50 ML VIAL IV ONE ×5 (00:09→12:56)
[2020-07-20] MEDS: INSULIN LISPRO 100 UNIT/ML SUBCUT SCH ×5 (00:23→23:44)
[2020-07-20] MEDS: LORazepam 2 MG/1 ML VIAL IV PRN ×2 (01:25→05:17)
[2020-07-20 04:39] LABS: ABG Base Excess -5.1 MMOL/L (-2.5-2.5); ABG HCO3 20.2 MMOL/L (20-26); ABG PCO2 29.7 MM HG (35-48); ABG PH 7.404 (7.35-7.45); ABG TCO2 16.6 MMOL/L (23-27)
[2020-07-20 05:04] LABS: Calcium 7.1 MG/DL (8.5-10.1); Osmolality,Calculated 291.4 MOS/KG (273-304); Potassium 4.3 MMOL/L (3.5-5.1)
[2020-07-20] MEDS: NOREPINEPHRINE 8 MG in SODIUM CHLORIDE 0.9% 242 ML IV PRN ×3 (05:47→22:11)
[2020-07-20 05:55] LABS: Basophils % 0.1 % (0.0-0.8); Hematocrit 33.2 VOL% (42.0-52.0); Immature Granulocytes % 1.7 %; Immature Granulocytes Absolute 0.32 #; Lymphocytes # 0.5 10*3/uL (1.4-4.0); Lymphocytes % 2.9 % (21.2-54.2); Mean Corpuscular HGB Conc 31.6 GM/DL (32-36); Mean Corpuscular Volume 84.1 FL (87-102); Mean Platelet Volume 10.8 FL (9.6-12.0); Monocytes % 1.7 % (1.7-12.7); NRBC # 0.02 10*3/uL; Neutrophils % 93.6 % (38.7-73.9); Red Cell Distribution Width 17.5 % (9.3-17.3)
[2020-07-20 06:06] LABS: Hemoglobin 10.5 GM/DL (14.0-18.0); Platelet Count 376 T/CUMM (130-400); Red Blood Count 3.95 MC/CUMM (3.8-5.5); White Blood Count 18.8 T/CUMM (4-12)
[2020-07-20 06:28] LABS: Hypochromasia 1+; Lymphocytes 4 % (20-55); Microcytosis 1+; Ovalocytes Slight; Platelet Estimate Adequate; Segmented Neutrophils 96 % (50-85); Total Cells Counted 100
[2020-07-20] MEDS ORDERED: PHENYLEPHRINE DRIP 40 MG/250 ML PREMIX IV ONE (06:43)
[2020-07-20] MEDS: PHENYLEPHRINE DRIP 40 MG/250 ML PREMIX IV PRN ×2 (06:46→10:54)
[2020-07-20 07:19] LABS: CKMB % 8.4 %
[2020-07-20 07:26] LABS: Troponin I 6.01 NG/ML (0.00-0.045)
[2020-07-20 07:41] LABS: CKMB % 8.1 %
[2020-07-20 07:45] LABS: Troponin I 7.12 NG/ML (0.00-0.045)
[2020-07-20 08:11] LABS: ABG Base Excess -22.2 MMOL/L (-2.5-2.5); ABG HCO3 6.5 MMOL/L (20-26); ABG Oxygen Saturation 98.9 % (95-100); ABG PCO2 23.3 MM HG (35-48); ABG PO2 231.4 MM HG (80-95); ABG TCO2 7.2 MMOL/L (23-27)
[2020-07-20 08:15] LABS: ABG PH 7.062 (7.35-7.45)
[2020-07-20] MEDS: HYDROCORTISONE 100 MG VIAL IV SCH ×3 (08:26→23:40)
[2020-07-20] MEDS: SKIN HEALING OINT (AQUAPHOR) 50 GM TUBE TOP SCH (08:27)
[2020-07-20] MEDS: ROSUVASTATIN 20 MG TABLET PO SCH (08:27)
[2020-07-20] MEDS: ASPIRIN CHEW 81 MG TABLET PO SCH (08:27)
[2020-07-20] MEDS ORDERED: SODIUM CHLORIDE 0.9% 1,000 ML IV ONE (08:30)
[2020-07-20] MEDS ORDERED: AMIODARONE INJ 150 MG in DEXTROSE 5% 100 ML IV ONE (08:55)
[2020-07-20] MEDS ORDERED: AMIODARONE INJ 450 MG in DEXTROSE 5% 241 ML IV SCH (09:00)
[2020-07-20] MEDS: HEPARIN DRIP 25,000 UNITS/500 ML PREMIX IV SCH (09:10)
[2020-07-20] MEDS ORDERED: PHENYLEPHRINE INJ 160 MG in SODIUM CHLORIDE 0.9% 234 ML IV PRN (12:14)
[2020-07-20] MEDS ORDERED: DOPamine 800 MG/250 ML PREMIX IV ONE (12:58)
[2020-07-20] MEDS: DOPamine 800 MG/250 ML PREMIX IV PRN ×2 (12:58→21:56)
[2020-07-20] MEDS: SODIUM BICARB INJ 150 MEQ in DEXTROSE 5% 850 ML IV SCH (15:09)
[2020-07-20] MEDS: AMIODARONE INJ 450 MG in DEXTROSE 5% 241 ML IV SCH (15:21)
[2020-07-20] MEDS ORDERED: NOREPINEPHRINE 4 MG/4 ML VIAL IV ONE (22:09)
[2020-07-21] MEDS: SODIUM BICARB INJ 150 MEQ in DEXTROSE 5% 850 ML IV SCH ×2 (01:12→12:05)
[2020-07-21] MEDS: DOPamine 800 MG/250 ML PREMIX IV PRN ×2 (01:34→10:19)
[2020-07-21] MEDS: NOREPINEPHRINE 8 MG in SODIUM CHLORIDE 0.9% 242 ML IV PRN (01:34)
[2020-07-21 05:10] LABS: Basophils # 0.1 10*3/uL (0.0-0.2); Basophils % 0.2 % (0.0-0.8); Eosinophils # 3.9 10*3/uL (0.0-0.87); Eosinophils % 11.1 % (0.00-10.9); Hematocrit 35.7 VOL% (42.0-52.0); Hemoglobin 9.8 GM/DL (14.0-18.0); Immature Granulocytes % 8.3 %; Lymphocytes # 2.2 10*3/uL (1.4-4.0); Lymphocytes % 6.3 % (21.2-54.2); Mean Corpuscular HGB Conc 27.5 GM/DL (32-36); Mean Corpuscular Volume 98.3 FL (87-102); Mean Platelet Volume 10.8 FL (9.6-12.0); Monocytes % 2.4 % (1.7-12.7); NRBC # 0.81 10*3/uL; Neutrophils % 71.7 % (38.7-73.9); Platelet Count 290 T/CUMM (130-400); Red Blood Count 3.63 MC/CUMM (3.8-5.5); Red Cell Distribution Width 18.6 % (9.3-17.3); White Blood Count 34.9 T/CUMM (4-12)
[2020-07-21 05:14] LABS: Band Neutrophils 1 % (0-10); Burr Cells Slight; Eosinophils 1 % (0-10); Hypochromasia 1+; Lymphocytes 7 % (20-55); Microcytosis 1+; Nucleated Red Blood Cells 3 (0-5); Ovalocytes Slight; Platelet Estimate Adequate; Segmented Neutrophils 86 % (50-85); Total Cells Counted 100
[2020-07-21 05:29] LABS: Albumin 1.6 G/DL (3.4-5.0); Bilirubin,Total 1.4 MG/DL (0.2-1.0); Calcium 5.9 MG/DL (8.5-10.1); Osmolality,Calculated 297.5 MOS/KG (273-304)
[2020-07-21] MEDS: INSULIN LISPRO 100 UNIT/ML SUBCUT SCH ×2 (06:40→12:46)
[2020-07-21] MEDS: AMIODARONE INJ 450 MG in DEXTROSE 5% 241 ML IV SCH (06:40)
[2020-07-21 07:01] VITALS: BP 145/49
[2020-07-21] MEDS: HYDROCORTISONE 100 MG VIAL IV SCH (08:11)
[2020-07-21] MEDS: ASPIRIN CHEW 81 MG TABLET PO SCH (08:13)
[2020-07-21] MEDS: SKIN HEALING OINT (AQUAPHOR) 50 GM TUBE TOP SCH (08:13)
[2020-07-21] MEDS: ROSUVASTATIN 20 MG TABLET PO SCH (08:13)
[2020-07-21] MEDS: HEPARIN DRIP 25,000 UNITS/500 ML PREMIX IV SCH (08:55)
[2020-07-21] MEDS ORDERED: PIPERACILLIN/TAZOBACTAM 3,375 MG in SODIUM CHLORIDE 0.9% 100 ML IV SCH (09:00)
[2020-07-21] MEDS ORDERED: VANCOMYCIN INJ 1,250 MG in SODIUM CHLORIDE 0.9% 250 ML IV ONE (10:00)
== END 2020-07-21 15:23 | disposition expired | DRG 207 ==
LOC: EDBD → EDUNIT# → N.EDINP 11:30 → N.ED 11:30 → SUATTDRO 14:11 → N.TELEN 14:50 → N.ICU 07-17 06:03 → SUATTDRO 07-17 09:06
PROVIDERS: ADMIT Internal Medicine; ATTEND Internal Medicine